=== PATIENT | male | born 1960 | race Caucasian/White ===

== ENCOUNTER 2021-05-23 10:16 | Inpatient (IN) | payer OTHER ==
--- OUTSIDE RECORDS SUMMARY | 2021-05-23 10:18 | XMS REPORT | Continuity of Care Document ---
:[address] [facility] t Address [address] [place] [address] Care Team Providers Name Role Phone NEGRA GRADY Attending Clinician Unavailable MARTY PATEL Attending Clinician Unavailable MEHRAN Attending Clinician Unavailable NEGRA GRADY Admitting Clinician Unavailable Problems This patient has no known problems. Allergies, Adverse Reactions, Alerts This patient has no known allergies or adverse reactions. Medications This patient has no known medications. Procedures This patient has no known procedures. Encounters Start End Encounter Admission Attending Care Care Encounter Source Date/Time Date/Time Type Type Clinicians Facility Department ID 2021-03-15 2021-03-19 Inpatient E [facility]EL [facility] [id number] 03:55:00 16:38:00 [facility] 2020-07-27 2020-07-27 Outpatient [facility] [id number] [facility] 10:02:00 23:59:00 DARRICK 2019-05-20 2019-05-20 Emergency [facility] [id number] [place] 00:00:00 00:00:00 TEODORA [facility] 2019-05-03 2019-05-03 Emergency E [facility] [id number] 15:08:00 15:08:00 [facility]id [facility] Results This patient has no known results.
[2021-05-23 10:43] LABS: Absolute Lymphocytes (CBC) 0.7 K/uL (0.7-4.9); MPV 6.5 fL (7.6-11.3); RBC Red Blood Cell Count 4.69 M/uL (4.33-5.43)
[2021-05-23 10:53] LABS: Protime INR 0.87
--- NOTE | 2021-05-23 11:27 | RAD REPORT ---
EXAM DESCRIPTION: RAD - Chest Single View - 05/23/2021 11:08 am CLINICAL HISTORY: CONGESTION Chest pain. COMPARISON: No comparisons FINDINGS: Portable technique limits examination quality. Moderate bilateral pulmonary opacities are present, greatest in the left lung base, most compatible w ith pneumonia. The heart is normal in size. No displaced fractures. IMPRESSION: Predominately left lower lobe pneumonia pattern.
--- NOTE | 2021-05-23 12:38 | RAD REPORT ---
EXAM DESCRIPTION: CT - Head Brain Wo Cont - 05/23/2021 12:19 pm CLINICAL HISTORY: lethargic Headache, drowsiness COMPARISON: No comparisons TECHNIQUE: All CT scans are performed using dose optimization technique as appropriate and may inclu de automated exposure control or mA/KV adjustment according to patient size. FINDINGS: No acute hemorrhage, hydrocephalus or extra-axial fluid collections seen.The ventricular s ystem is very diminutive.Right frontal ventriculostomy shunt is present. No midline shift. Mild mucosal thickening of the right maxillary antrum. The paranasal sinuses and mastoids are otherwi se clear. The calvarium is intact. 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 Clinical correlation is recommended.
--- NOTE | 2021-05-23 12:41 | RAD REPORT ---
EXAM DESCRIPTION: CT - Chest For Pe Angio - 05/23/2021 12:19 pm CLINICAL HISTORY: COUGH COMPARISON: No comparisons FINDINGS: Chest Wall: No suspicious thyroid nodules or pathologic lymphadenopathy. Lungs: Patchy multifocal airspace disease, predominantly left-sided. Pleura: No significant effusions or pneumothorax. Mediastinum/ruchi: No pathologic lymphadenopathy. There is fluid in the esophagus. Pulmonary arteries/Aorta: No filling defect identified. No aortic aneurysm. Heart: No significant pericardial effusion. Normal heart size. Upper abdomen: No acute abnormality. Multilevel degenerative changes are present in the spine. Spinal stimulator. Bones: No acute abnormality. Subacute versus remote rib fractures. All CT scans are performed using dose optimization technique as appropriate and may include automated exposure control or mA/KV adjustment according to patient size. IMPRESSION: Negative for pulmonary embolism. Bilateral ground-glass opacities concerning for infecti on or inflammation. Covid-19 is within the differential. Fluid within the esophagus also noted which could be as result of aspiration which is within the differential.
[2021-05-23 13:01] LABS: BUN Blood Urea Nitrogen 12 mg/dL (7-18); Bicarbonate 32 mmol/L (21-32); Glucose Level 123 mg/dL (74-106); Potassium 4.3 mmol/L (3.5-5.1); Sodium Level 137 mmol/L (136-145)
[2021-05-23] MEDS ORDERED: ONDANSETRON 4 MG/2 ML VIAL IV PRN (13:48)
[2021-05-23] MEDS ORDERED: ACETAMINOPHEN 500 MG TAB PO PRN (13:48)
[2021-05-23] MEDS: IPRATROPIUM BROM 0.5MG/2.5ML NEB SCH ×2 (14:30→19:25)
[2021-05-23] MEDS: ALBUTEROL 2.5 MG/3 ML NEB SOL NEB SCH ×2 (14:30→19:25)
--- NOTE | 2021-05-23 14:45 | EDPHYS ---
Physician Documentation [facility] Name: Jed Hernandez Age: 61 yrs Sex: Male : 1960 Arrival Date: 05/23/2021 Time: 10:16 Bed 7 Private MD: ED Physician Benson Montesinos HPI: 05/23 10:31 This 61 yrs old Unknown Male presents to ER via EMS with complaints of Shortness Of ma2 Breath. 10:31 The patient has shortness of breath at rest. Onset: The symptoms/episode began/occurred ma2 gradually, 1 day(s) ago. Associated signs and symptoms: Pertinent positives: productive cough, Pertinent negatives: non-productive cough, fever, loss of consciousness, numbness in extremities. Severity of symptoms: At their worst the symptoms were moderate in the emergency department the symptoms are unchanged. The patient has not experienced similar symptoms in the past. Historical: - Allergies: 10:20 No Known Allergies; jl7 - PMHx: 10:20 chronic back pain; jl7 - Immunization history:: Client reports receiving the 2nd dose of the Covid vaccine, Moderna. - Social history:: Smoking status: Patient reports use of chewing tobacco. - Family history:: not pertinent. ROS: 10:31 Constitutional: Negative for fever, chills, and weight loss. ma2 10:31 All other systems are negative. Exam: 10:31 Constitutional: This is a well developed, well nourished patient who is awake, alert, ma2 and in no acute distress. Head/Face: Normocephalic, atraumatic. Eyes: Pupils equal round and reactive to light, extra-ocular motions intact. Lids and lashes normal. Conjunctiva and sclera are non-icteric and not injected. Cornea within normal limits. Periorbital areas with no swelling, redness, or edema. ENT: Nares patent. No nasal discharge, no septal abnormalities noted. Tympanic membranes are normal and external auditory canals are clear. Oropharynx with no redness, swelling, or masses, exudates, or evidence of obstruction, uvula midline. Mucous membranes moist. Neck: Trachea midline, no thyromegaly or masses palpated, and no cervical lymphadenopathy. Supple, full range of motion without nuchal rigidity, or vertebral point tenderness. No Meningismus. Chest/axilla: Normal chest wall appearance and motion. Nontender with no deformity. No lesions are appreciated. Cardiovascular: Regular rate and rhythm with a normal S1 and S2. No gallops, murmurs, or rubs. Normal PMI, no JVD. No pulse deficits. Respiratory: Hypoxemia, bilateral Rales, otherwise lungs have equal breath sounds bilaterally, clear to auscultation and percussion. No added sounds rhonchi or wheezes noted. No increased work of breathing, no retractions or nasal flaring. Abdomen/GI: Soft, non-tender, with normal bowel sounds. No distension or tympany. No guarding or rebound. No evidence of tenderness throughout. Back: No spinal tenderness. No costovertebral tenderness. Full range of motion. Male : Normal genitalia with no discharge or lesions. Vital Signs: 10:17 BP 111 / 63; Pulse 86; Resp 15; Temp 97.6; Pulse Ox 99% on Nebulizer Mask; Weight 67.59 jl7 kg; Height 5 ft. 9 in. (175.26 cm); Pain 0/10; 11:36 BP 96 / 62; Pulse 70; Resp 17; Pulse Ox 94% on 30% Venturi mask; jl7 12:37 BP 109 / 61; Pulse 71; Resp 12; Pulse Ox 98% on R/A; ld1 13:15 BP 102 / 70; Pulse 68; Resp 15; Pulse Ox 97% on R/A; ld1 14:00 BP 104 / 71; Pulse 67; Resp 15; Pulse Ox 96% on R/A; ld1 15:10 BP 95 / 51; Pulse 71; Resp 15; Pulse Ox 97% on R/A; ld1 16:04 BP 99 / 76; Pulse 75; Resp 18; Pulse Ox 95% on R/A; ld1 10:17 Body Mass Index 22.00 (67.59 kg, 175.26 cm) jl7 [place] Coma Score: 13:15 Eye Response: to voice(3). Verbal Response: confused(4). Motor Response: localizes ld1 pain(5). Total: 12. 15:11 Eye Response: spontaneous(4). Verbal Response: oriented(5). Motor Response: obeys ld1 commands(6). Total: 15. MDM: 14:42 Differential diagnosis:. Data reviewed: vital signs, nurses notes, EMS record. [facility] 14:43 ED course: Patient has pneumonia mild elevation white count CT head shows decompressed ma2 ventricles which is nonacute likely due to VP OF [employer] shunt which she had 10 years ago after meningitis. No meningism on exam, vital signs otherwise looks good except he is on oxygen. With hypoxemia, I discussed with Dr. Dunn hospitalist, he accepted him for admission. 14:44 Patient medically screened. [facility] 05/23 10:18 Order name: BMP [facility] 05/23 10:18 Order name: Blood Culture Adult (2) [facility] 05/23 10:18 Order name: CBC with Diff; Complete Time: 13:42 [facility] 05/23 10:18 Order name: CPK [facility] 05/23 10:18 Order name: Ckmb [facility] 05/23 10:18 Order name: D-Dimer; Complete Time: 13:42 [facility] 05/23 10:18 Order name: Hepatic Function [facility] 05/23 10:18 Order name: Lipase [facility] 05/23 10:18 Order name: Magnesium [facility] 05/23 10:18 Order name: NT PRO-BNP [facility] 05/23 10:18 Order name: PT-INR; Complete Time: 13:42 [facility] 05/23 10:18 Order name: Ptt, Activated; Complete Time: 13:42 [facility] 05/23 10:18 Order name: SARS-COV-2 RT PCR (Document "Date of Onset" if Symptomatic); Complete Time: 13:42 05/23 14:22 Order name: CREATININE WHOLE BLOOD [facility] 05/23 10:18 Order name: XRAY CXR (1 view); Complete Time: 13:42 [facility] 05/23 10:18 Order name: EKG; Complete Time: 10:19 [facility] 05/23 10:18 Order name: Cardiac monitoring; Complete Time: 10:37 [facility] 05/23 10:18 Order name: EKG - Nurse/Tech; Complete Time: 10:37 [facility] 05/23 10:18 Order name: IV Saline Lock; Complete Time: 10:37 ca05/23 10:18 Order name: Labs collected and sent; Complete Time: 10:37 [facility] 05/23 10:18 Order name: O2 Per Protocol; Complete Time: 10:37 ca05/23 10:18 Order name: O2 Sat Monitoring; Complete Time: 10:37 ca 05/23 11:31 Order name: CT Chest For PE Angio; Complete Time: 13:42 ma2 05/23 12:05 Order name: CT Head Brain wo Cont; Complete Time: 13:42 jl7 05/23 13:52 Order name: NPO; Complete Time: 14:50 EDMS Administered Medications: 14:59 Drug: Rocephin (cefTRIAXone) 1 grams Route: IV; Rate: calculated rate; Site: left ww antecubital; 15:24 Drug: AZITHromycin 500 mg Route: IVPB; Infused Over: 1 hrs; Site: left antecubital; ww Disposition Summary: 05/23/21 14:44 Hospitalization Ordered Hospitalization Status: Inpatient Admission ma2 Provider: Benson Dunn Condition: Stable ma2 Problem: new ma2 Symptoms: are unchanged ma2 Bed/Room Type: Standard ma2 Location: Telemetry/MedSurg (Inpatient)(05/23/21 14:49) bd Room Assignment: [facility](05/23/21 14:49) bd Diagnosis - Other pneumonia, unspecified organism ma2 - Elevated white blood cell count ma2 Forms: - Medication Reconciliation Form ma2 - SBAR form ma2 Signatures: Dispatcher [employer] EDMS Aide Mckeon Jahala, RN RN jl7 Benson Montesinos MD MD ma2 Tamra Dwyer RN RN ww Corrections: (The following items were deleted from the chart) 14:49 14:44 Telemetry/MedSurg (Inpatient) ma2 bd 14:49 14:44 ma2 bd
--- NOTE | 2021-05-23 14:45 | ER ---
Nurse's Notes [facility] Name: Jed Hernandez Age: 61 yrs Sex: Male : 1960 Arrival Date: 05/23/2021 Time: 10:16 Bed 7 Private MD: Diagnosis: Other pneumonia, unspecified organism;Elevated white blood cell count Presentation: 05/23 10:17 Chief complaint: EMS states: Toned out for shortness of breath, pt was 85% on room air, jl7 gave A\T\A treatment and 125 mg Solu-Medrol, pt 98% on arrival to ED. Recent Covid exposure, cough started today. Coronavirus screen: Vaccine status: Patient reports receiving the 2nd dose of the covid vaccine. Moderna cough unrelated to allergies, shortness of breath, Client presents with at least one sign or symptom that may indicate coronavirus-19. Standard/surgical mask placed on the client. Provider contacted for isolation considerations. Ebola Screen: No symptoms or risks identified at this time. Initial Sepsis Screen: Does the patient meet any 2 criteria? No. Patient's initial sepsis screen is negative. Does the patient have a suspected source of infection? No. Patient's initial sepsis screen is negative. Risk Assessment: Do you want to hurt yourself or someone else? Patient reports no desire to harm self or others. Onset of symptoms was May 23, 2021. 10:17 Method Of Arrival: EMS: [facility] jl7 10:17 Acuity: GLORIA 2 jl7 Triage Assessment: 10:20 General: Appears in no apparent distress. uncomfortable, Behavior is calm, cooperative, jl7 appropriate for age, drowsy. Pain: Denies pain. Neuro: Level of Consciousness is obeys commands, lethargic, Oriented to person, place, time, situation. Cardiovascular: Respiratory: Reports shortness of breath cough that is Airway is patent Respiratory effort is even, unlabored, Respiratory pattern is regular, symmetrical, Breath sounds are diminished Breath sounds with rhonchi Onset: The symptoms/episode began/occurred this morning, the patient has moderate shortness of breath. Derm: Skin is pink, warm \T\ dry. Historical: - Allergies: 10:20 No Known Allergies; jl7 - PMHx: 10:20 chronic back pain; jl7 - Immunization history:: Client reports receiving the 2nd dose of the Covid vaccine, Moderna. - Social history:: Smoking status: Patient reports use of chewing tobacco. - Family history:: not pertinent. Screenin:37 Abuse screen: Denies threats or abuse. Denies injuries from another. Nutritional jl7 screening: No deficits noted. Tuberculosis screening: No symptoms or risk factors identified. Fall Risk Fall in past 12 months (25 points). Secondary diagnosis (15 points) impaired mobility, IV access (20 points). Ambulatory Aid- None/Bed Rest/Nurse Assist (0 pts). Gait- Weak (10 pts.). Mental Status- Overestimates/Forgets Limitations (15 pts.). Total Giordano Fall Scale indicates High Risk Score (45 or more points). Fall prevention measures have been instituted. Side Rails Up X 2 Placed Close to Nursing Station Frequent Obs/Assessments Occuring Family Present and informed to notify staff if the need to leave the bedside As available patient and family educated on Fall Prevention Program and Strategies. Assessment: 10:37 General: See triage. jl7 11:53 Reassessment: Patient appears in no apparent distress at this time. No changes from jl7 previously documented assessment. Patient and/or family updated on plan of care and expected duration. Pain level reassessed. 12:23 Reassessment: Patient appears in no apparent distress at this time. No changes from previously documented assessment. Patient and/or family updated on plan of care and expected duration. Pain level reassessed. Patient is alert, oriented x 3, equal unlabored respirations, skin warm/dry/pink. Neuro: Level of Consciousness is confused, lethargic. Cardiovascular: Rhythm is regular. 13:35 Reassessment: Patient appears in no apparent distress at this time. No changes from previously documented assessment. Patient and/or family updated on plan of care and expected duration. Pain level reassessed. spouse at bedside and updated with plan of care. 14:30 Neuro: Level of Consciousness is awake, alert, obeys commands, Oriented to person, ww place, time, Speech is normal. 15:55 Reassessment: Patient appears in no apparent distress at this time. Neuro: Level of ww Consciousness is awake, alert, obeys commands. 16:04 Reassessment: Patient appears in no apparent distress at this time. Patient is alert, ld1 oriented x 3, equal unlabored respirations, skin warm/dry/pink. Vital Signs: 10:17 BP 111 / 63; Pulse 86; Resp 15; Temp 97.6; Pulse Ox 99% on Nebulizer Mask; Weight 67.59 jl7 kg; Height 5 ft. 9 in. (175.26 cm); Pain 0/10; 11:36 BP 96 / 62; Pulse 70; Resp 17; Pulse Ox 94% on 30% Venturi mask; jl7 12:37 BP 109 / 61; Pulse 71; Resp 12; Pulse Ox 98% on R/A; ld1 13:15 BP 102 / 70; Pulse 68; Resp 15; Pulse Ox 97% on R/A; ld1 14:00 BP 104 / 71; Pulse 67; Resp 15; Pulse Ox 96% on R/A; ld1 15:10 BP 95 / 51; Pulse 71; Resp 15; Pulse Ox 97% on R/A; ld1 16:04 BP 99 / 76; Pulse 75; Resp 18; Pulse Ox 95% on R/A; ld1 10:17 Body Mass Index 22.00 (67.59 kg, 175.26 cm) jl7 [place] Coma Score: 13:15 Eye Response: to voice(3). Verbal Response: confused(4). Motor Response: localizes ld1 pain(5). Total: 12. 15:11 Eye Response: spontaneous(4). Verbal Response: oriented(5). Motor Response: obeys ld1 commands(6). Total: 15. ED Course: 10:16 Patient arrived in ED. am2 10:17 Benson Montesinos MD is Attending Physician. ma2 10:17 Tg Miller RN is Primary Nurse. jl7 10:20 Triage completed. jl7 10:20 Arm band placed on right wrist. jl7 10:37 Patient has correct armband on for positive identification. Placed in gown. Bed in low jl7 position. Call light in reach. Side rails up X2. parcel post carrier on. Pulse ox on. NIBP on. Warm blanket given. 10:37 Initial lab(s) drawn, by ED staff, sent to lab. EKG done, by ED staff, reviewed by samantha Montesinos MD. Maintain EMS IV. Dressing intact. Good blood return noted. Site clean \T\ dry. Gauge \T\ site: 20 Right AC. 10:37 COVID swab sent to lab. jl7 11:08 XRAY CXR (1 view) In Process Unspecified. EDMS 12:19 CT Chest For PE Angio In Process Unspecified. EDMS 12:19 CT Head Brain wo Cont In Process Unspecified. EDMS 14:44 Benson Dunn MD is Hospitalizing Provider. ma2 15:12 No provider procedures requiring assistance completed. Patient admitted, IV remains in ww place. Administered Medications: 14:59 Drug: Rocephin (cefTRIAXone) 1 grams Route: IV; Rate: calculated rate; Site: left ww antecubital; 15:24 Drug: AZITHromycin 500 mg Route: IVPB; Infused Over: 1 hrs; Site: left antecubital; Outcome: 14:44 Decision to Hospitalize by Provider. ma2 15:12 Condition: stable ww 15:12 Discharge instructions given to patient, significant other, Instructed on the need for admit. 15:55 Admitted to Med/surg accompanied by tech, family with patient, room 211, Report called ww to Giovanni 16:29 Patient left the ED. ww Signatures: Dispatcher [employer] EDMS Tg Miller RN RN jl7 Lucero Vega Mohammad, MD MD ma2 Ivett Urbano RN RN ld1 Tamra Dwyer RN RN ww
[2021-05-23] MEDS ORDERED: CEFTRIAXONE 1000 MG/VIAL ONE ×2 (14:53→21:12)
[2021-05-23] MEDS ORDERED: AZITHROMYCIN 500 MG INJ IVPB ONE (14:53)
[2021-05-23] MEDS ORDERED: NA CHLORIDE 0.9% 100 ML ONE (14:53)
[2021-05-23] MEDS ORDERED: NA CHLORIDE 0.9% 250 ML ONE (14:53)
[2021-05-23] MEDS: NA CHLORIDE 0.9% 1,000 ML IV SCH (16:34)
[2021-05-23 16:47] VITALS: BMI 21.9
[2021-05-23 17:11] LABS: ALT/SGPT 54 U/L (12-78); AST/SGOT 39 U/L (15-37); Albumin 3.9 g/dL (3.4-5.0); Alkaline Phosphatase 120 U/L (45-117); Bilirubin Total 0.3 mg/dL (0.2-1.0); Creatine Phosphokinase 244 U/L (39-308); Lipase 52 U/L (73-393); Magnesium 2.3 mg/dL (1.8-2.4); Protein, Total 7.4 g/dL (6.4-8.2)
[2021-05-23 17:29] LABS: Bilirubin Direct 0.1 mg/dL (0-0.2); CKMB Creatine Kinase MB 7.9 ng/mL (1.0-3.6); NT PRO-BNP 84 pg/mL (<125)
[2021-05-23] MEDS ORDERED: NA CHLORIDE 0.9% 50 ML ONE (21:14)
[2021-05-23] MEDS: CEFTRIAXONE 1,000 MG in NA CHLORIDE 0.9% 50 ML IVPB SCH (21:22)
[2021-05-24] MEDS: ALBUTEROL 2.5 MG/3 ML NEB SOL NEB SCH ×4 (01:40→19:45)
[2021-05-24] MEDS: IPRATROPIUM BROM 0.5MG/2.5ML NEB SCH ×4 (01:40→19:45)
[2021-05-24] MEDS: NA CHLORIDE 0.9% 1,000 ML IV SCH ×2 (03:20→17:12)
[2021-05-24 05:39] LABS: Absolute Lymphocytes (CBC) 0.9 K/uL (0.7-4.9); Hematocrit 35.5 % (39.6-49.0); Lymphocytes % 7.1 % (15.3-44.8); RBC Red Blood Cell Count 3.92 M/uL (4.33-5.43)
[2021-05-24 07:32] LABS: ALT/SGPT 46 U/L (12-78); AST/SGOT 33 U/L (15-37); Albumin 3.1 g/dL (3.4-5.0); Alkaline Phosphatase 96 U/L (45-117); BUN Blood Urea Nitrogen 12 mg/dL (7-18); Bicarbonate 28 mmol/L (21-32); Bilirubin Total 0.2 mg/dL (0.2-1.0); Glucose Level 112 mg/dL (74-106); HDL Cholesterol 87 mg/dL (40-60); LDL Cholesterol, Calculated 31 (<130); Magnesium 2.5 mg/dL (1.8-2.4); NT PRO-BNP 472 pg/mL (<125); Phosphorus 2.4 mg/dL (2.5-4.9); Potassium 4.6 mmol/L (3.5-5.1); Protein, Total 6.4 g/dL (6.4-8.2); Sodium Level 139 mmol/L (136-145)
[2021-05-24] MEDS ORDERED: NA CHLORIDE 0.9% 250 ML ONE (08:03)
[2021-05-24] MEDS ORDERED: AZITHROMYCIN 500 MG INJ IVPB ONE (08:04)
[2021-05-24] MEDS ORDERED: NA CHLORIDE 0.9% 50 ML ONE (08:06)
--- NOTE | 2021-05-24 08:30 | P.HP ---
Certification for Inpatient Patient admitted to: Inpatient With expected LOS: >2 Midnights Patient will require the following post-hospital care: None Practitioner: I am a practitioner with admitting privileges, knowledge of patient current condition, hospital course, and medical plan of care. Services: Services provided to patient in accordance with Admission requirements found in Title 42 Section 412.3 of the Code of Federal Regulations Patient History Date of Service: 05/23/21 Reason for admission: Shortness of breath; bilateral pneumonia History of Present Illness: Patient is a 61-year-old gentleman who presents to the hospital with altered mentation. Patient states he went to his pain doctor yesterday and his pain medication was changed. He had recently ran out of his Suboxone. He had gone to the pain doctor and it was restarted. He took it last night. He had this morning his had a hard time getting him awake and alert and he was very tachypneic. She called EMS and he was brought into the emergency room. In the emergency room his work-up revealed bilateral pneumonia. Patient appears to have multifocal pneumonia. His COVID test was negative. He will be admitted to the hospital for bacterial pneumonia. We will continue with IV antibiotic therapy. We will check procalcitonin level. Patient will be admitted for fur ther treatment. Allergies No Known Allergies Allergy (Unverified 05/23/21 14:41) - Past Medical/Surgical History Diabetic: No -: MRSA -: Bacterial Meningitis 2x -: Subdural Hematoma 2x -: Chronic back pain -: 2 hernia repairs -: HTN -: HLD -: Gastritis -: Brain surgery x4 -: Neurostimulator in back -: Titanium infusion C4/5 -: Shoulder sx -: Torn rotator cuff-fixed 2011 - Family History Father Family History: Reviewed- Non-Contributory - Social History Smoking Status: Former smoker Alcohol use: No CD- Drugs: No Caffeine use: Yes Place of Residence: Home Review of Systems 10-point ROS is otherwise unremarkable Physical Examination - Vital Signs Temperature: 98.4 F Blood Pressure: 138/69 Pulse: 95 Respirations: 18 Pulse Ox (%): 93 - Physical Exam General: Alert, In no apparent distress, Oriented x3 (Daughter) Respiratory: Diminished Cardiovascular: Regular rate/rhythm, Normal S1 S2 Gastrointestinal: Normal bowel sounds, Soft and benign, Non-distended, No tenderness Musculoskeletal: No clubbing, No swelling, No tenderness Neurological: Normal speech, Cranial nerves 3-12 intact, Abnormal strength Assessment & Plan - Problems (Diagnosis) (1) AMS (altered mental status) Current Visit: Yes Status: Acute (2) Hypoxemia Current Visit: Yes Status: Acute (3) Pneumonia Current Visit: Yes Status: Acute (4) Leukocytosis Current Visit: Yes Status: Acute - Plan Plan: 1. Continue with antibiotic therapy 2. Repeat chest x-ray in the morning 3. Outpatient pulmonary consultation 4. Sputum culture 5. Check procalcitonin level 6. Adjust home medication as 7. Monitor diet and swallowing for dysphagia 8. Adjust pain medications 9. GI and DVT prophylaxis Discharge Plan: Home Plan to discharge in: Greater than 2 days - Advance Directives Does patient have a Living Will: No Does patient have a Durable POA for Healthcare: No - Code Status/Comfort Care Code Status Assessed: Yes Code Status: Full Code Critical Care: No Time Spent Managing PTS Care (In Minutes): 45
--- NOTE | 2021-05-24 08:44 | P.PN ---
Subjective Date of Service: 05/24/21 Patient continues to improve. Respiratory status is better. We will take off of oxygen and check his room air oxygen today. Cultures are pending. Review of Systems 10-point ROS is otherwise unremarkable Physical Examination - Vital Signs Temperature: 98.4 F Blood Pressure: 138/69 Pulse: 95 Respirations: 18 Pulse Ox (%): 93 - Physical Exam General: Alert, In no apparent distress HEENT: Atraumatic, PERRLA, EOMI Neck: Supple, JVD not distended Respiratory: Clear to auscultation bilaterally, Normal air movement Cardiovascular: Regular rate/rhythm, Normal S1 S2 Gastrointestinal: Normal bowel sounds, No tenderness Musculoskeletal: No tenderness Integumentary: No rashes Neurological: Normal speech, Normal tone, Normal affect Lymphatics: No axilla or inguinal lymphadenopathy - Studies Medications List Reviewed: Yes Assessment & Plan - Problems (Diagnosis) (1) AMS (altered mental status) Current Visit: Yes Status: Acute (2) Hypoxemia Current Visit: Yes Status: Acute (3) Pneumonia Current Visit: Yes Status: Acute (4) Leukocytosis Current Visit: Yes Status: Acute - Plan Plan: 1. Continue with antibiotic therapy 2. Repeat chest x-ray in the morning 3. Outpatient pulmonary consultation 4. Sputum culture 5. Check procalcitonin level 6. Adjust home medication as 7. Monitor diet and swallowing for dysphagia 8. Adjust pain medications 9. GI and DVT prophylaxis - Advance Directives Does patient have a Living Will: No Does patient have a Durable POA for Healthcare: No - Code Status/Comfort Care Code Status: Full Code
[2021-05-24] MEDS: CEFTRIAXONE 1000 MG/VIAL ONE ×2 (08:59→09:01)
[2021-05-24] MEDS: AZITHROMYCIN IV 500 MG in NA CHLORIDE 0.9% 250 ML IVPB SCH (09:00)
[2021-05-24] MEDS: ENOXAPARIN 40 MG/0.4 ML SQ SCH (09:01)
[2021-05-24] MEDS: CEFTRIAXONE 1,000 MG in NA CHLORIDE 0.9% 50 ML IVPB SCH ×2 (09:19→21:36)
[2021-05-24] MEDS ORDERED: ZOLPIDEM TARTRATE 5 MG TABLET PO PRN (21:07)
[2021-05-24] MEDS: POTASS/SODIUM PHOSPHATE 1 PKT POWD.PACK PO SCH ×3 (21:42→23:34)
[2021-05-25] MEDS: ALBUTEROL 2.5 MG/3 ML NEB SOL NEB SCH ×4 (02:05→19:58)
[2021-05-25] MEDS: IPRATROPIUM BROM 0.5MG/2.5ML NEB SCH ×4 (02:05→19:58)
[2021-05-25] MEDS: NA CHLORIDE 0.9% 1,000 ML IV SCH ×2 (06:13→23:22)
[2021-05-25 07:26] LABS: BUN Blood Urea Nitrogen 10 mg/dL (7-18); Bicarbonate 32 mmol/L (21-32); Glucose Level 96 mg/dL (74-106); Phosphorus 3.6 mg/dL (2.5-4.9); Potassium 4.2 mmol/L (3.5-5.1); Sodium Level 139 mmol/L (136-145)
[2021-05-25] MEDS: AZITHROMYCIN IV 500 MG in NA CHLORIDE 0.9% 250 ML IVPB SCH (08:11)
[2021-05-25] MEDS: ENOXAPARIN 40 MG/0.4 ML SQ SCH (08:12)
[2021-05-25] MEDS: CEFTRIAXONE 1,000 MG in NA CHLORIDE 0.9% 50 ML IVPB SCH ×2 (08:12→20:30)
[2021-05-25] MEDS: CYCLOBENZAPRINE 10 MG TAB PO SCH ×2 (12:27→20:30)
[2021-05-25] MEDS: AMITRIPTYLINE 50 MG TAB PO SCH (20:30)
[2021-05-25] MEDS: SULFASALAZINE 500 MG E.C. TAB PO SCH (20:30)
[2021-05-25] MEDS: ATORVASTATIN 40 MG TAB PO SCH (20:30)
[2021-05-25] MEDS: TRAZODONE 50 MG TABLET PO SCH (20:30)
[2021-05-26] MEDS: ALBUTEROL 2.5 MG/3 ML NEB SOL NEB SCH ×4 (01:18→20:15)
[2021-05-26] MEDS: IPRATROPIUM BROM 0.5MG/2.5ML NEB SCH ×4 (01:18→20:15)
[2021-05-26 07:00] LABS: Hematocrit 36.9 % (39.6-49.0); MPV 6.4 fL (7.6-11.3); RBC Red Blood Cell Count 4.07 M/uL (4.33-5.43)
[2021-05-26 07:17] LABS: ALT/SGPT 77 U/L (12-78); AST/SGOT 42 U/L (15-37); Albumin 2.8 g/dL (3.4-5.0); Alkaline Phosphatase 113 U/L (45-117); BUN Blood Urea Nitrogen 11 mg/dL (7-18); Bicarbonate 31 mmol/L (21-32); Bilirubin Total 0.3 mg/dL (0.2-1.0); Glucose Level 101 mg/dL (74-106); Magnesium 1.9 mg/dL (1.8-2.4); Potassium 4.6 mmol/L (3.5-5.1); Protein, Total 6.4 g/dL (6.4-8.2); Sodium Level 139 mmol/L (136-145)
[2021-05-26] MEDS: NA CHLORIDE 0.9% 1,000 ML IV SCH ×3 (08:40→22:00)
[2021-05-26] MEDS: BUPRENORPHINE HCL 2 MG SL SCH (09:00)
[2021-05-26] MEDS: CEFTRIAXONE 1,000 MG in NA CHLORIDE 0.9% 50 ML IVPB SCH ×2 (09:21→20:43)
[2021-05-26] MEDS: AZITHROMYCIN IV 500 MG in NA CHLORIDE 0.9% 250 ML IVPB SCH (09:21)
[2021-05-26] MEDS: SULFASALAZINE 500 MG E.C. TAB PO SCH ×2 (09:22→20:43)
[2021-05-26] MEDS: ENOXAPARIN 40 MG/0.4 ML SQ SCH (09:22)
[2021-05-26] MEDS: CYCLOBENZAPRINE 10 MG TAB PO SCH ×3 (09:22→20:43)
[2021-05-26] MEDS: CITALOPRAM 10 MG TABLET PO SCH (09:23)
[2021-05-26] MEDS: AMLODIPINE 10 MG TAB PO SCH (09:23)
[2021-05-26] MEDS: FOLIC ACID 1 MG TABLET PO SCH (09:24)
--- NOTE | 2021-05-26 11:37 | RAD REPORT ---
EXAM DESCRIPTION: RAD - Chest Single View - 05/26/2021 8:41 am CLINICAL HISTORY: pneumonia Chest pain. COMPARISON: Chest Single View dated 05/23/2021 FINDINGS: Portable technique limits examination quality. Bilateral pulmonary opacities are again seen, with moderate improvement in the left basilar lung infi ltrate since comparative study dated 05/23/2021. The heart is normal in size.
[2021-05-26 18:44] VITALS: O2SAT 92
[2021-05-26] MEDS ORDERED: CEFTRIAXONE 1000 MG/VIAL ONE (20:37)
[2021-05-26] MEDS ORDERED: NA CHLORIDE 0.9% 50 ML ONE (20:41)
[2021-05-26] MEDS: AMITRIPTYLINE 50 MG TAB PO SCH (20:42)
[2021-05-26] MEDS: ATORVASTATIN 40 MG TAB PO SCH (20:42)
[2021-05-26] MEDS: TRAZODONE 50 MG TABLET PO SCH (20:43)
--- NOTE | 2021-05-27 00:36 | P.PN ---
Date of Service: 05/25/21 Subjective Patient is still slightly hypoxic. Patient is coughing and congested. We are weaning off the oxygen and continue antibiotics Review of Systems 10-point ROS is otherwise unremarkable Physical Examination - Vital Signs Reviewed - Physical Exam General: Alert, In no apparent distress Respiratory: Basilar rhonchi Cardiovascular: Regular rate/rhythm, Normal S1 S2 Gastrointestinal: Normal bowel sounds, No tenderness Neurological: Normal speech, Normal tone, Normal affect Assessment & Plan - Problems (Diagnosis) (1) AMS (altered mental status) Current Visit: Yes Status: Acute (2) Hypoxemia Current Visit: Yes Status: Acute (3) Pneumonia Current Visit: Yes Status: Acute (4) Leukocytosis Current Visit: Yes Status: Acute - Plan Plan: 1. Continue with antibiotic therapy 2. Plan to repeat the chest x-ray 3. Outpatient pulmonary consultation 4. Sputum culture is negative 5. Repeat procalcitonin level 6. Will need to adjust all medications as patient was found unresponsive by his . Concern for aspiration. 7. Monitor diet and swallowing for dysphagia 8. GI and DVT prophylaxis
--- NOTE | 2021-05-27 00:40 | P.PN ---
Date of Service: 05/26/21 Subjective Patient was very lethargic today. Will need to adjust home medications. Patient is also had chest x-ray with improvement. Room air O2 sats today as well. Anticipate discharge home over the next 24-48 hr. Review of Systems 10-point ROS is otherwise unremarkable Physical Examination - Vital Signs Reviewed - Physical Exam General: Alert, In no apparent distress Respiratory: Clear bilaterally Cardiovascular: Regular rate/rhythm, Normal S1 S2 Gastrointestinal: Normal bowel sounds, No tenderness Neurological: No focal deficits Assessment & Plan - Problems (Diagnosis) (1) AMS (altered mental status) Current Visit: Yes Status: Acute (2) Hypoxemia Current Visit: Yes Status: Acute (3) Pneumonia Current Visit: Yes Status: Acute (4) Leukocytosis Current Visit: Yes Status: Acute (5) History of chronic pain Current Visit: Yes Status: Chronic (6) Hypertension Current Visit: Yes Status: Chronic - Plan Continue with plan of care as mentioned below: 1. Continue with antibiotic therapy; for aspiration pneumonia 2. Plan to repeat the chest x-ray 3. Outpatient pulmonary consultation 4. Sputum culture is negative 5. Room air O2 sats 6. Continue with pain medications; adjust medications for insomnia 7. Tolerating diet; strict blood pressure control 8. GI and DVT prophylaxis
[2021-05-27] MEDS: PIPER TAZO 3.375 GM in NA CHLORIDE 0.9% 100 ML IV SCH ×2 (01:09→10:27)
[2021-05-27] MEDS: IPRATROPIUM BROM 0.5MG/2.5ML NEB SCH ×3 (02:15→14:06)
[2021-05-27] MEDS: ALBUTEROL 2.5 MG/3 ML NEB SOL NEB SCH ×3 (02:15→14:06)
[2021-05-27] MEDS: BUPRENORPHINE HCL 2 MG SL SCH (09:00)
[2021-05-27] MEDS: SULFASALAZINE 500 MG E.C. TAB PO SCH (10:28)
[2021-05-27] MEDS: ENOXAPARIN 40 MG/0.4 ML SQ SCH (10:28)
[2021-05-27] MEDS: CYCLOBENZAPRINE 10 MG TAB PO SCH ×2 (10:28→14:00)
[2021-05-27] MEDS: CITALOPRAM 10 MG TABLET PO SCH (10:29)
[2021-05-27] MEDS: AMLODIPINE 10 MG TAB PO SCH (10:29)
[2021-05-27] MEDS: FOLIC ACID 1 MG TABLET PO SCH (10:29)
--- NOTE | 2021-05-27 12:06 | P.DS ---
Admission Date: 05/23/21 Discharge Date: 05/27/21 Primary Care Provider: Migue PCP Disposition: ROUTINE DISCHARGE Discharge Condition: GOOD Reason for Admission: Shortness of breath; bilateral pneumonia Consultations: none Procedures: COVID: Negative CT Chest: COMPARISON: No comparisons FINDINGS: Chest Wall: No suspicious thyroid nodules or pathologic lymphadenopathy. Lungs: Patchy multifocal airspace disease, predominantly left-sided. Pleura: No significant effusions or pneumothorax. Mediastinum/ruchi: No pathologic lymphadenopathy. There is fluid in the esophagus. Pulmonary arteries/Aorta: No filling defect identified. No aortic aneurysm. Heart: No significant pericardial effusion. Normal heart size. Upper abdomen: No acute abnormality. Multilevel degenerative changes are present in the spine. Spinal stimulator. Bones: No acute abnormality. Subacute versus remote rib fractures. All CT scans are performed using dose optimization technique as appropriate and may include automated exposure control or mA/KV adjustment according to patient size. IMPRESSION: Negative for pulmonary embolism. Bilateral ground-glass opacities concerning for infection or inflammation. Covid-19 is within the differential. Fluid within the esophagus also noted which could be as result of aspiration which is within the differential. CT head: COMPARISON: No comparisons TECHNIQUE: All CT scans are performed using dose optimization technique as appropriate and may include automated exposure control or mA/KV adjustment according to patient size. FINDINGS: No acute hemorrhage, hydrocephalus or extra-axial fluid collections seen.The ventricular system is very diminutive.Right frontal ventriculostomy shunt is present. No midline shift. Mild mucosal thickening of the right maxillary antrum. The paranasal sinuses and mastoids are otherwise clear. The calvarium is intact. IMPRESSION: The ventricular system is very decompressed and diminutive, which can be seen in slit-ventricle syndrome. Clinical correlation is recommended. Follow up CXR: COMPARISON: Chest Single View dated 05/23/2021 FINDINGS: Portable technique limits examination quality. Bilateral pulmonary opacities are again seen, with moderate improvement in the left basilar lung infiltrate since comparative study dated 05/23/2021. The heart is normal in size. Medical Problem List: Acute encephalopathy secondary to bilateral pneumonia with hypoxia, likely aspiration Chronic pain Hypertension Depression Hyperlipidemia Brief History of Present Illness: 61-year-old male with history of hypertension, chronic pain presented to the emergency room with altered mental status. Patient had recent change in his pain medication. Patient found to have multifocal pneumonia. Patient was admitted for treatment. Hospital Course: Patient presented with acute encephalopathy secondary to bilateral pneumonia with hypoxia. Patient required hospitalization. Patient improved with IV antibiotic therapy and treatment. At discharge x-ray shows improvement. Patient no longer on oxygen. Patient likely had aspiration pneumonia. Patient had pain medication adjusted prior to admission. At discharge the patient will continue with Augmentin 875 mg 1 pill twice daily for 5 more days. Patient will also continue with Tessalon Perles 100 mg 3 times a day as needed for cough. Recommend to recheck chest x-ray in 2 to 4 weeks to monitor resolution. Recommend follow-up with PCP to further monitor and follow-up this hospitalization. Patient will be given a list of PCPs in the area to establish care. Patient with chronic pain. Prior to admission medications were adjusted by his pain management physician. Suboxone 2 mg sublingual daily At discharge patient will continue with his current medications including, Flexeril 10 mg 3 times a day as needed for muscle spasm and folic acid. Recommend follow-up with chronic pain management to further address and monitor his condition. Patient with depression. At discharge patient will continue with Celexa 20 mg daily and trazodone 100 mg at bedtime. Patient with hypertension. At discharge patient will continue with Norvasc 10 mg daily. Recommend to maintain blood pressure less than 130/80. Further treatment can be done by his PCP. Patient with hyperlipidemia. At discharge patient will continue with Lipitor 40 mg daily. Patient also takes sulfasalazine 500 mg 1 pill twice daily and folic acid daily. Patient may continue with these medications at discharge. Vital Signs/Physical Exam: Temp Pulse Resp BP Pulse Ox 97.7 F 80 18 124/68 94 05/27/21 08:00 05/27/21 08:00 05/27/21 08:00 05/27/21 10:29 05/27/21 08:00 General: Alert, In no apparent distress, Oriented x3, Cooperative HEENT: Atraumatic Neck: Supple Respiratory: Clear to auscultation bilaterally, Normal air movement Cardiovascular: Normal pulses, Regular rate/rhythm Gastrointestinal: Normal bowel sounds, No tenderness, No masses, No rebound, No guarding Musculoskeletal: No erythema, No tenderness, No warmth Integumentary: No tenderness/swelling, No erythema, No warmth, No cyanosis Neurological: Normal speech, Normal strength at 5/5 x4 extr, Normal tone, Normal affect Laboratory Data at Discharge: WBC 8.70 K/uL (4.3-10.9) D 05/26/21 06:38 Hgb 12.1 g/dL (13.6-17.9) L 05/26/21 06:38 Hct 36.9 % (39.6-49.0) L 05/26/21 06:38 Plt Count 237 K/uL (152-406) 05/26/21 06:38 PT 10.0 SECONDS (9.5-12.5) 05/23/21 Unknown INR 0.87 05/23/21 Unknown APTT 24.8 SECONDS (24.3-36.9) 05/23/21 Unknown Sodium 139 mmol/L (136-145) 05/26/21 06:38 Potassium 4.6 mmol/L (3.5-5.1) 05/26/21 06:38 BUN 11 mg/dL (7-18) 05/26/21 06:38 Creatinine 0.52 mg/dL (0.55-1.3) L 05/26/21 06:38 Glucose 101 mg/dL (74-106) 05/26/21 06:38 Phosphorus 3.6 mg/dL (2.5-4.9) 05/25/21 07:00 Magnesium 1.9 mg/dL (1.8-2.4) D 05/26/21 06:38 Total Bilirubin 0.3 mg/dL (0.2-1.0) 05/26/21 06:38 AST 42 U/L (15-37) H 05/26/21 06:38 ALT 77 U/L (12-78) 05/26/21 06:38 Alkaline Phosphatase 113 U/L (45-117) 05/26/21 06:38 Triglycerides 35 mg/dL (<150) 05/24/21 05:06 Cholesterol 125 mg/dL (<200) 05/24/21 05:06 HDL Cholesterol 87 mg/dL (40-60) H 05/24/21 05:06 Cholesterol/HDL Ratio 1.44 05/24/21 05:06 Lipase 52 U/L (73-393) L 05/23/21 Unknown Home Medications: Amitriptyline [Elavil*] 50 mg PO BEDTIME 05/24/21 Amlodipine [Norvasc*] 10 mg PO DAILY 05/24/21 Atorvastatin Calcium [Lipitor] 40 mg PO BEDTIME 05/24/21 Citalopram [Celexa*] 20 mg PO DAILY 05/24/21 Cyclobenzaprine [Flexeril*] 10 mg PO TID 05/24/21 Folic Acid 20 mg PO DAILY 05/24/21 Trazodone [Desyrel*] 100 mg PO BEDTIME 05/24/21 buprenorphine HCL [Buprenorphine HCl] 2 mg SL DAILY 05/24/21 sulfaSALAzine [Sulfasalazine] 500 mg PO BID 05/24/21 Amox/Clavulanate [Augmentin 875-125 Tab*] 875 mg PO BID #10 tab 05/27/21 Benzonatate [Tessalon Perle] 100 mg PO TID PRN #10 cap 05/27/21 New Medications: Amox/Clavulanate [Augmentin 875-125 Tab*] 875 mg PO BID #10 tab Benzonatate [Tessalon Perle] 100 mg PO TID PRN #10 cap PRN Reason: Cough Physician Discharge Instructions: Patient presented with acute encephalopathy secondary to bilateral pneumonia with hypoxia. Patient required hospitalization. Patient improved with IV antibiotic therapy and treatment. At discharge x-ray shows improvement. Patient no longer on oxygen. Patient likely had aspiration pneumonia. Patient had pain medication adjusted prior to admission. At discharge the patient will continue with Augmentin 875 mg 1 pill twice daily for 5 more days. Patient will also continue with Tessalon Perles 100 mg 3 times a day as needed for cough. Recommend to recheck chest x-ray in 2 to 4 weeks to monitor resolution. Recommend follow-up with PCP to further monitor and follow-up this hospitalization. Patient will be given a list of PCPs in the area to establish care. Patient with chronic pain. Prior to admission medications were adjusted by his pain management physician. Suboxone 2 mg sublingual daily At discharge patient will continue with his current medications including, Flexeril 10 mg 3 times a day as needed for muscle spasm and folic acid. Recommend follow-up with chronic pain management to further address and monitor his condition. Patient with depression. At discharge patient will continue with Celexa 20 mg daily and trazodone 100 mg at bedtime. Patient with hypertension. At discharge patient will continue with Norvasc 10 mg daily. Recommend to maintain blood pressure less than 130/80. Further treatment can be done by his PCP. Patient with hyperlipidemia. At discharge patient will continue with Lipitor 40 mg daily. Patient also takes sulfasalazine 500 mg 1 pill twice daily and folic acid daily. Patient may continue with these medications at discharge. Diet: AHA Activity: Ad gurinder Followup: NONE,NONE [Primary Care Provider] - Time spent managing pt's care (in minutes): 55
[2021-05-27 13:27] VITALS: BP 155/73; TEMP 98.4
[2021-05-27] MEDS ORDERED: AMOX/K CLAV 875 MG TAB PO SCH (21:00)
[2021-05-27] MEDS ORDERED: TRAZODONE 50 MG TABLET PO SCH (21:00)
== END 2021-05-27 16:44 | disposition home or self-care (01) | DRG 178 ==
LOC: ER 10:16 → ERHOLD 13:49 → 2ND 16:10
PROVIDERS: ADMIT Hospitalist; ATTEND Hospitalist
DX: J69.0 Pneumonitis due to inhalation of food and vomit (principal); G93.40 Encephalopathy, unspecified; R09.02 Hypoxemia; G89.29 Other chronic pain; I10 Essential (primary) hypertension; F32.A Depression, unspecified; E78.5 Hyperlipidemia, unspecified; G47.00 Insomnia, unspecified; Z87.891 Personal history of nicotine dependence; Z20.822 Contact with and (suspected) exposure to COVID-19
CPT/HCPCS: 36415; 70450; 71045; 71275; 80048; 80053; 80061; 80076; 82550; 82553; 82565; 83690; 83735; 83880; 84100; 84145; 84443; 85025; 85379; 85610; 85730; 87040; 87070; 87205; 93005; 94640; 94760; 96374; 96375; 99285; J0456; J1650; J2543; J7030; J7050; Q9967; U0003

== ENCOUNTER 2023-01-10 04:19 | Emergency (ER) | payer OTHER ==
--- OUTSIDE RECORDS SUMMARY | 2023-01-10 04:22 | XMS REPORT | Continuity of Care Document ---
:1960 Author Organization [facility] t Address [address] [facility]. [address] [place] [address] Care Team Providers Name Role Phone Andrew Boyce MD Primary Care Physician COLLINS WOOTEN Attending Clinician Unavailable Kemar Viveros MD Attending Clinician [phone] Sheryl Ayala MA Attending Clinician Unavailable DEWAYNE GRADY Attending Clinician Unavailable DARRICK PATEL Attending Clinician Unavailable TEODORA LAURENT Attending Clinician Unavailable DEWAYNE GRADY Admitting Clinician Unavailable Payers Payer Name Policy Type Policy Number Effective Date Expiration Date S ource Problems Condition Condition Condition Status Onset Resolution Last Treating Co mments Source Name Details Category Date Date Treatment Clinician Date Foreign Foreign Disease Active [facility] head head 00:00: [facility]osp[facility] 00 l Allergies, Adverse Reactions, Alerts This patient has no known allergies or adverse reactions. Social History Social Habit Start Date Stop Date Quantity Comments Source [facility] History of tobacco Current smoker [facility] History of Social 2022-10-03 2022-10-[address] function 00:00:00 00:00:00 Hospital Alcohol intake 2019-05-20 2019-05-20 Current [facility] 00:00:00 00:00:00 non-drinker of Hospital alcohol (finding) Alcohol Comment 2016-09-23 2016-09-23 2003 [facility] 00:[facility]:00 [facility]:00 Hospital Cigarettes smoked 2016-09-23 2016-09-[address] current (pack per 00:00:00 00:00:00 Hospita l day) - Reported Tobacco use and 2016-09-23 2016-09-23 [facility] of [facility] exposure 00:00:00 00:00:00 smokeless Hospital tobacco Sex Assigned At [birth year] [facility] 00[facility] Smoking Status Start Date Stop Date Source Ex-smoker 2016-09-23 00:00:00 2016-09-23 [facility]:00:[facility] Medications Ordered Filled Start Stop Current Ordering Indication Dosage Frequency Signature Comments Components Source Medication Medication Date Date Medication? Clinician (SIG) Name Name armodafinil Yes 250mg QD Take 250 M [facility] (NUVIGIL) 5-[address] 250 mg 16:39: mouth [facility]ospita tablet 47 daily. l simvastatin Yes 10mg QD Take 10 mg [facility] (ZOCOR) 10 5-[address] MG tablet 16:39: nightly. Hosp yadira 47 l propranolol Yes 120mg QD Take 120 M [facility] XL 5-[address] (INNOPRAN 16:39: mouth Hospita XL) 120 MG 47 nightly. l 24 hr capsule amLODIPine Yes 10mg QD Take 10 mg M [facility] (NORVASC) 5-[address] 10 mg 16:39: nightly. Hospita tablet 47 l cyclobenzap Yes 10mg [id number] Take 10 mg [facility] rine 5-18 [id number] mouth [address] (FLEXERIL) 16:39: 3D (three) Hosp yadira 10 mg 47 times a l tablet day as needed for muscle spasms. escitalopra Yes 20mg QD Take 20 mg [facility] m (LEXAPRO) 5-[address] 20 MG 16:39: nightly. Hospita tablet 47 l sucralfate 0 Yes 1g Q.25D Take 1 g Me thodi (CARAFATE) 5-[address] 1 gram 16:39: (four) Hospita tablet 47 times a l day. omeprazole 2017-0 Yes 40mg QD Take 40 mg M [facility] (PriLOSEC) 5-[address] 40 MG 16:39: nightly. Hospita capsule 47 l Vital Signs Vital Name Observation Time Observation Value Comments Source Systolic blood 2022-10-03 17:44:37 146 mm[Hg] [facility] pressure Diastolic blood 2022-10-03 17:44:37 86 mm[Hg] [facility] pressure Heart rate 2022-10-03 17:44:37 83 /min [facility] Body temperature 2022-10-03 17:41:57 35.72 Ester [facility] Respiratory rate 2022-10-03 17:41:57 18 /min [facility] Oxygen saturation in 2022-10-03 17:41:57 96 /min [facility] Arterial blood by Pulse oximetry Body height 2022-10-03 13:33:00 175.3 cm [facility] Body weight 2022-10-03 13:33:00 63.504 kg [facility] BMI 2022-10-03 13:33:00 20.67 kg/m2 [facility] Procedures Procedure Date / Time Performed Performing Clinician Apryl e CT CERVICAL SPINE WO 2022-10-03 14:01:04 Viveros [facility] CONTRAST [facility] CT HEAD WO CONTRAST 2022-10-03 13:56:35 [facility] Plan of Care Planned Activity Planned Date Details Comments Source Future Scheduled 2023-01-09 [facility] Test 07:04:26 malignant neoplasm of colon (procedure) [code = 559760023] Future Scheduled 2023-01-09 [facility] Test 07:04:26 malignant neoplasm of colon (procedure) [code = 346174586] Future Scheduled 2023-01-09 [facility] Test 07:04:26 malignant neoplasm of colon (procedure) [code = 849030001] Future Scheduled 2023-01-09 [facility] Test 07:04:26 screening (procedure) [code = 258579613] Future Scheduled 2023-01-09 [facility] Test 07:04:26 malignant neoplasm of colon (procedure) [code = 610166478] Future Scheduled 2023-01-09 [facility] Test 07:04:26 malignant neoplasm of colon (procedure) [code = 796267653] Future Scheduled 2023-01-09 SHINGLES VACCINES [facility] Test 07:04: (1 of 2) [code = SHINGLES VACCINES (1 of 2)] Future Scheduled 2023-01-09 INFLUENZA VACCINE [facility] Test 07:04: (#1) [code = INFLUENZA VACCINE (#1)] Encounters Start End Encounter Admission Attending Care Care Encounter Source Date/Time Date/Time Type Type Clinicians Facility Department ID 2022-10-31 2022-11-01 Emergency E SUGAR, [facility] [id number] 23:09:00 00:24:00 COLLINS Bradshaw l [facility] 2022-10-03 2022-10-03 Emergency Viveros, 1.2.840.1 [id number] [facility] 08:36:00 12:49:[id number] [facility] 3.430.2.7 Hospit a .3.171381 l .8 2022-10-03 2022-10-03 Emergency VIVEROS, [facility] [id number] 00:00:00 00:00:[address] KEM[address] 2022-06-25 2022-06-25 Telephone Ayala, 1.2.840.1 [id number] [facility] 00:00:00 00:00:[id number] 3.430.2.7 Hospit a .3.107022 l .8 2021-03-15 2021-03-19 Inpatient E YSABEL, [facility] CAR [id number] 03:55:00 16:38:00 DEWAYNE Bradshaw [facility] 2020-07-27 2020-07-27 Outpatient JORGE, [facility] [id number] [facility] 10:02:00 23:59:00 DARRICK 2019-05-20 2019-05-20 Emergency [facility], [facility] [id number] 00:00:00 00:00:00 TEODORA [address] 2019-05-03 2019-05-03 Emergency E [facility] [address] 15:08:00 15:08:00 [facility] Results This patient has no known results.
--- NOTE | 2023-01-10 06:23 | ER ---
Nurse's Notes [facility] Name: Jed Hernandez Age: 62 yrs Sex: Male : 1960 Arrival Date: 01/10/2023 Time: 04:19 Bed 5 Private MD: Diagnosis: Pain in right foot-foreign body retained, REMOVED Presentation: 01/10 04:52 Chief complaint: Patient states: right heel pain of 9 with walking, onset 6-9 months pf1 ago. Patient stated stepped on either a piece of glass or metal while in the garage,onset 6-9 months ago. 04:52 Coronavirus screen: Vaccine status: Patient reports receiving the 2nd dose of the covid pf1 vaccine. 4 doses of Moderna Client denies travel out of the [place] in the last 14 days. At this time, the client does not indicate any symptoms associated with coronavirus-19. Ebola Screen: Patient negative for fever greater than or equal to 101.5 degrees Fahrenheit, and additional compatible Ebola Virus Disease symptoms. Initial Sepsis Screen: Does the patient meet any 2 criteria? No. Patient's initial sepsis screen is negative. Does the patient have a suspected source of infection? No. Patient's initial sepsis screen is negative. Risk Assessment: Do you want to hurt yourself or someone else? Patient reports no desire to harm self or others. 04:52 Method Of Arrival: Ambulatory pf1 04:52 Acuity: GLORIA 4 pf1 06:47 Onset of symptoms is unknown. rv Historical: - Allergies: 05:15 No Known Allergies; pf1 - PMHx: 05:15 chronic back pain; DDD; Hypercholesterolemia; Hypertensive disorder; edema; Arthritis; pf1 - PSHx: 05:15 inguinal hernia; back surgery; brain surgery with HISTOLOGY TECHNOLOGIST shunt; left shoulder; pf1 - Immunization history:: Adult Immunizations up to date, Last tetanus immunization: < 5 years ago Flu vaccine is up to date. - Social history:: Smoking status: Patient/guardian denies using tobacco, the patient reports quitting approximately 40 years ago, Patient/guardian denies using alcohol, the patient reports quitting approximately 20 years ago. - Family history:: not pertinent. Screenin:02 [facility] ED Fall Risk Assessment (Adult) History of falling in the last 3 months, rv including since admission No falls in past 3 months (0 pts) Confusion or Disorientation No (0 pts) Intoxicated or Sedated No (0 pts) Impaired Gait No (0 pts) Mobility Assist Device Used No (0 pt) Altered Elimination No (0 pt) Score/Fall Risk Level 0 - 2 = Low Risk Oriented to surroundings, Maintained a safe environment, Educated pt \T\ family on fall prevention, incl call for assistance when getting out of bed, Assessed \T\ reinforced patient's understanding of fall precautions, Provided non-skid footwear, Hourly rounding (assess needs \T\ fall precautionary measures) done, Used ambulatory aids as needed (educated on \T\ assisted with), Used gait belt as appropriate. Abuse screen: Denies threats or abuse. Denies injuries from another. Nutritional screening: No deficits noted. Tuberculosis screening: No symptoms or risk factors identified. Assessment: 05:02 General: Appears comfortable, Behavior is calm, cooperative. Neuro: Level of rv Consciousness is awake, alert, obeys commands, Oriented to person, place, time, situation. Cardiovascular: Capillary refill < 3 seconds Patient's skin is warm and dry. Respiratory: Airway is patent Respiratory effort is even, unlabored, Respiratory pattern is. GI: No signs and/or symptoms were reported involving the gastrointestinal system. : No signs and/or symptoms were reported regarding the genitourinary system. Derm: Skin is intact. 05:02 Pain: Complains of pain in right foot. rv Vital Signs: 04:52 BP 151 / 97; Pulse 74; Resp 16; Temp 97.9; Pulse Ox 100% on R/A; Weight 58.51 kg; pf1 Height 5 ft. 9 in. ; Pain 0/10; 06:46 BP 152 / 99; Pulse 71; Resp 16; Temp 98; Pulse Ox 99% ; rv 04:52 Body Mass Index 19.05 (58.51 kg, 175.26 cm) pf1 04:52 Pain Scale: Adult pf1 Ruffin Coma Score: 06:47 Eye Response: spontaneous(4). Motor Response: obeys commands(6). Verbal Response: rv oriented(5). Total: 15. ED Course: 04:24 Patient arrived in ED. mr 04:53 Edilberto Connors MD is Attending Physician. alexander 04:55 Irwin, Alok, RN is Primary Nurse. rv 05:02 Patient has correct armband on for positive identification. Bed in low position. Call rv light in reach. Side rails up X 1. Provided Education on: FRACTURE. 05:02 No provider procedures requiring assistance completed. rv 05:15 Triage completed. pf1 05:46 Foot Right 3 View XRAY In Process Unspecified. EDMS 06:15 Assist provider with foreign body removal from right FOOT using NEEDLE Performed by rochelle Connors MD Patient tolerated well. 06:23 Casey Harden DPM is Referral Physician. alexander 06:48 Arm band placed on. rv 06:48 Patient did not have IV access during this emergency room visit. rv 07:05 Foot Right 3 View XRAY In Process Unspecified. EDMS Administered Medications: 06:14 Drug: Mupirocin Topical Ointment 2 % 1 application Route: Topical; Site: wound; rv 06:48 Follow up: Response: No adverse reaction rv 06:26 Drug: Cephalexin PO 500 mg Route: PO; rv 06:48 Follow up: Response: Medication administered at discharge. rv Medication: 05:02 VIS not applicable for this client. rv Outcome: 06:23 Discharge ordered by . alexander 06:47 Discharged to home ambulatory. rv 06:47 Condition: improved 06:47 Discharge instructions given to patient, Instructed on discharge instructions, follow up and referral plans. medication usage, Demonstrated understanding of instructions, follow-up care, medications, Prescriptions given X 2. 06:48 Patient left the ED. rv Signatures: Dispatcher [employer] EDEdilberto Patel MD MD cha Rivera, Mary mr Alok Gayle RN RN Ginger Beltran RN RN pf1
--- NOTE | 2023-01-10 06:23 | EDPHYS ---
Physician Documentation [facility] Name: Jed Hernandez Age: 62 yrs Sex: Male : 1960 Arrival Date: 01/10/2023 Time: 04:19 Bed 5 Private MD: NETTIE Physician Edilberto Connors HPI: 01/10 05:17 This 62 yrs old Male presents to ER via Ambulatory with complaints of Foot alexander Pain. 05:17 The patient presents with pain, that is chronic. The complaints affect the right foot, alexanedr heel of right foot. Context: The problem was sustained at an unknown location, resulted from the patient stepping on glass, sharp metal. Onset: The symptoms/episode began/occurred 6 month(s) ago. Modifying factors: The symptoms are alleviated by nothing, the symptoms are aggravated by nothing. Associated signs and symptoms: The patient has no apparent associated signs or symptoms. Severity of symptoms: At their worst the symptoms were mild, in the emergency department the symptoms are unchanged. The patient has not experienced similar symptoms in the past. 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 - Social history:: Smoking status: Patient/guardian denies using tobacco, the patient reports quitting approximately 40 years ago, Patient/guardian denies using alcohol, the patient reports quitting approximately 20 years ago. - Family history:: not pertinent. ROS: 05:17 Constitutional: Negative for fever, chills, and weight loss, Eyes: Negative for injury, alexander pain, redness, and discharge, ENT: Negative for injury, pain, and discharge, Neck: Negative for injury, pain, and swelling, Cardiovascular: Negative for chest pain, palpitations, and edema, Respiratory: Negative for shortness of breath, cough, wheezing, and pleuritic chest pain, Abdomen/GI: Negative for abdominal pain, nausea, vomiting, diarrhea, and constipation, Back: Negative for injury and pain, : Negative for injury, bleeding, discharge, and swelling, Skin: Negative for injury, rash, and discoloration, Neuro: Negative for headache, weakness, numbness, tingling, and seizure, Psych: Negative for depression, anxiety, suicide ideation, homicidal ideation, and hallucinations, Allergy/Immunology: Negative for hives, rash, and allergies, Endocrine: Negative for neck swelling, polydipsia, polyuria, polyphagia, and marked weight changes, Hematologic/Lymphatic: Negative for swollen nodes, abnormal bleeding, and unusual bruising. 05:17 MS/extremity: Positive for pain, of the heel of right foot. Exam: 05:17 Constitutional: This is a well developed, well nourished patient who is awake, alert, alexander and in no acute distress. Head/Face: Normocephalic, atraumatic. Eyes: Pupils equal round and reactive to light, extra-ocular motions intact. Lids and lashes normal. Conjunctiva and sclera are non-icteric and not injected. Cornea within normal limits. Periorbital areas with no swelling, redness, or edema. ENT: Nares patent. No nasal discharge, no septal abnormalities noted. Tympanic membranes are normal and external auditory canals are clear. Oropharynx with no redness, swelling, or masses, exudates, or evidence of obstruction, uvula midline. Mucous membranes moist. Neck: Trachea midline, no thyromegaly or masses palpated, and no cervical lymphadenopathy. Supple, full range of motion without nuchal rigidity, or vertebral point tenderness. No Meningismus. Chest/axilla: Normal chest wall appearance and motion. Nontender with no deformity. No lesions are appreciated. Cardiovascular: Regular rate and rhythm with a normal S1 and S2. No gallops, murmurs, or rubs. Normal PMI, no JVD. No pulse deficits. Respiratory: Lungs have equal breath sounds bilaterally, clear to auscultation and percussion. No rales, rhonchi or wheezes noted. No increased work of breathing, no retractions or nasal flaring. Abdomen/GI: Soft, non-tender, with normal bowel sounds. No distension or tympany. No guarding or rebound. No evidence of tenderness throughout. Back: No spinal tenderness. No costovertebral tenderness. Full range of motion. Male : Normal genitalia with no discharge or lesions. Skin: Warm, dry with normal turgor. Normal color with no rashes, no lesions, and no evidence of cellulitis. Neuro: Awake and alert, GCS 15, oriented to person, place, time, and situation. Cranial nerves II-XII grossly intact. Motor strength 5/5 in all extremities. Sensory grossly intact. Cerebellar exam normal. Normal gait. Psych: Awake, alert, with orientation to person, place and time. Behavior, mood, and affect are within normal limits. 05:17 Musculoskeletal/extremity: Extremities: grossly normal except: noted in the heel of right foot: pain, ROM: intact in all extremities, full active range of motion, full passive range of motion, Circulation is intact in all extremities. Sensation intact. Compartment Syndrome exam of affected extremity: is normal. Weight bearing: able to fully bear weight, DVT Exam: no swelling, negative Homans' sign noted on exam, no appreciated bluish discoloration, no erythema, no increased warmth, pain, tenderness. Vital Signs: 04:52 BP 151 / 97; Pulse 74; Resp 16; Temp 97.9; Pulse Ox 100% on R/A; Weight 58.51 kg; pf1 Height 5 ft. 9 in. ; Pain 0/10; 06:46 BP 152 / 99; Pulse 71; Resp 16; Temp 98; Pulse Ox 99% ; rv 04:52 Body Mass Index 19.05 (58.51 kg, 175.26 cm) pf1 04:52 Pain Scale: Adult pf1 [place] Coma Score: 06:47 Eye Response: spontaneous(4). Motor Response: obeys commands(6). Verbal Response: rv oriented(5). Total: 15. Procedures: 06:21 I \T\ D: Incision and drainage was performed for an abscess of the right Prepped with [facility] Betadine, Anesthetized with nothing. Incised with 18 GUAGE. Drained small amount Dressing: non-Adherent dressing, the patient tolerated the procedure well. Foreign Body Removal: a fragment of glass, a piece of metal, from the right heel of right foot, by needle, Dressinx4s were used to dress the wound, The patient tolerated the removal well. MDM: 04:53 Patient medically screened. [facility] 05:20 Differential diagnosis: foreign body, penetrating trauma, cellulitis. Data reviewed: [facility] vital signs, nurses notes, radiologic studies, plain films. Consideration of Admission/Observation Escalation of care including admission/observation considered. I considered the following discharge prescriptions or medication management in the emergency department Medications were administered in the Emergency Department. See MAR. Historians other than the Patient: patient. Care significantly affected by the following chronic conditions: Hypertension, cbp, edema, ddd. 01/10 05:12 Order name: Foot Right 3 View XRAY pf1 01/10 06:05 Order name: Foot Right 3 View XRAY pf1 01/10 06:14 Order name: Wound Care; Complete Time: 06:14 alexander Administered Medications: 06:14 Drug: Mupirocin Topical Ointment 2 % 1 application Route: Topical; Site: wound; rv 06:48 Follow up: Response: No adverse reaction rv 06:26 Drug: Cephalexin PO 500 mg Route: PO; rv 06:48 Follow up: Response: Medication administered at discharge. rv Disposition Summary: 01/10/23 06:23 Discharge Ordered Location: Home alexander Problem: new alexander Symptoms: have improved alexander Condition: Stable alexander Diagnosis - Pain in right foot - foreign body retained, REMOVED alexander Followup: alexander - With: Private Physician - When: 2 - 3 days - Reason: Recheck today's complaints, Continuance of care, Re-evaluation by your physician Followup: alexander - With: - When: 2 - 3 days - Reason: Recheck today's complaints, Continuance of care, Re-evaluation by your physician Discharge Instructions: - Discharge Summary Sheet alexander - Foreign Body alexander - Foot Pain alexander - Hand or Foot Foreign Body, Adult alexander - Skin Foreign Body [facility] Forms: - Medication Reconciliation Form [facility] - Thank You Letter [facility] - Antibiotic Education alexander - Prescription Opioid Use alexander - Patient Portal Instructions [facility] - Leadership Thank You Letter [facility] Prescriptions: - Centany 2 % Topical ointment - apply 1 application by TOPICAL route 3 times per day administer after dialysis alexander on dialysis days; 15 application; Refills: 0, Product Selection Permitted - Cephalexin 500 mg Oral Capsule - take 1 capsule by ORAL route every 6 hours for 7 days; 28 capsule; Refills: 0, alexander Product Selection Permitted Signatures: Dispatcher [employer] Edilberto Carey MD MD cha Vicente, Ronaldo, RN RN Ginger Beltran RN RN pf1
[2023-01-10] MEDS ORDERED: CEPHALEXIN 250 MG CAP ONE (06:30)
[2023-01-10 06:55] VITALS: BP 152/99; TEMP 98; O2SAT 99
--- NOTE | 2023-01-10 08:21 | RAD REPORT ---
EXAM DESCRIPTION: RAD - Foot Right 3 View - 01/10/2023 7:03 am CLINICAL HISTORY: post foreign body removal COMPARISON: Foot Right 3 View dated 01/10/2023 TECHNIQUE: Right foot, 3 views. FINDINGS: No fracture, dislocation or periosteal reaction. Scattered degenerative changes with bunio n. Up to moderate degenerative changes at the tibiotalar articulation. Small calcaneal spur. No air or foreign body in the soft tissues. IMPRESSION: No acute osseous abnormality. No appreciable soft tissue gas.
--- NOTE | 2023-01-10 08:24 | RAD REPORT ---
EXAM DESCRIPTION: RAD - Foot Right 3 View - 01/10/2023 5:44 am CLINICAL HISTORY: PAIN COMPARISON: No comparisons TECHNIQUE: Right foot, 3 views. FINDINGS: No fracture, dislocation or periosteal reaction. Scattered degenerative changes. Small [place] caneal spur. Bunion formation. No air or foreign body in the soft tissues. IMPRESSION: No acute osseous abnormality. Chronic findings as above.
== END 2023-01-10 06:48 | disposition home or self-care (01) ==
LOC: ER 04:19
PROC: 0H9MXZZ Drainage of Right Foot Skin, External Approach (ICD-10-PCS; principal; 2023-01-10)
DX: L02.611 Cutaneous abscess of right foot (principal); S90.851A Superficial foreign body, right foot, initial encounter
CPT/HCPCS: 99284

== ENCOUNTER 2023-03-14 15:25 | Emergency (ER) | payer OTHER ==
--- OUTSIDE RECORDS SUMMARY | 2023-03-14 15:32 | XMS REPORT | Continuity of Care Document ---
:1960 Author Organization [facility] t Address [address] [place] [address] Care Team Providers Name Role Phone Andrew Boyce MD Primary Care Physician COLLINS WOOTEN Attending Clinician Unavailable Kemar Simmons MD Attending Clinician [phone] Sheryl Ayala MA Attending Clinician Unavailable [...] Start Date Stop Date Quantity Comments Source [facility] of tobacco Chews [facility] Gender identity [facility] History of Social 2022-10-03 2022-10-[address] function 00:00:00 00:00:00 Hospital Alcohol intake 2019-05-20 2019-05-20 Current [facility] 00:00:00 00:00:00 non-drinker of Hospital alcohol (finding) Alcohol Comment 2016-09-23 2016-09-23 2003 [facility] 00:00:00 00:00:00 Hospital Cigarettes smoked 2016-09-23 2016-09-[address] current (pack per 00:00:00 00:00:00 Hospita l day) - Reported Tobacco use and 2016-09-23 2016-09-23 User of [facility] exposure 00:00:00 00:00:00 smokeless Hospital tobacco Sex Assigned At [birth year] [facility] 00:00:00 00:00:00 Hospital Smoking Status Start Date [...] Hospita tablet 47 l cyclobenzap Yes 10mg [id number] Take 10 mg Method[facility] rine 5-18 [id number] by mouth [address] (FLEXERIL) 16:39: 3D [...] MG 16:39: nightly. Hospita capsule 47 l armodafinil 2017-0 Yes 250mg QD Take 250 M ethodi (NUVIGIL) 5-[address] 250 mg 16:39: mouth Hospita tablet 47 daily. l simvastatin 2017-0 Yes 10mg QD Take 10 mg [facility] (ZOCOR) 10 5-[address] MG tablet 16:39: nightly. Hosp yadira 47 l propranolol 2017-0 Yes 120mg QD Take 120 M ethodi XL 5-[address] (INNOPRAN 16:39: mouth Hospita XL) 120 MG 47 nightly. l 24 hr capsule amLODIPine 2017-0 Yes 10mg QD Take 10 mg M ethodi (NORVASC) 5-[address] 10 mg 16:39: nightly. Hospita tablet 47 l cyclobenzap 2017-0 Yes 10mg Q.[id number] Take 10 mg Methodi rine 5-18 [id number] by mouth [address] (FLEXERIL) 16:39: 3D (three) Hosp yadira 10 mg 47 times a l tablet day as needed for muscle spasms. escitalopra 2017-0 Yes 20mg QD Take 20 mg Method[facility] m (LEXAPRO) 5-[address] 20 MG 16:39: nightly. Hospita tablet 47 l sucralfate 2016-0 Yes 1g Q.25D Take 1 g Me [...] Source Systolic blood 2022-10-03 17:44:37 146 mm[Hg] [facility] pressure Diastolic blood 2022-10-03 17:44:37 86 mm[Hg] [facility] Hospital pressure Heart rate 2022-10-03 17:44:37 83 /min [facility] Body temperature 2022-10-03 17:41:57 35.72 [facility] Respiratory rate 2022-10-03 17:41:57 18 /min [facility] Oxygen saturation in 2022-10-03 17:41:57 96 /min [facility] Arterial blood by Pulse oximetry Body height 2022-10-03 13:33:00 175.3 cm [facility] Body weight 2022-10-03 13:33:00 63.504 kg [facility] BMI 2022-10-03 13:33:00 20.67 kg/m2 [facility] Procedures Procedure Date / Time Performed Performing Clinician Sourc e CT CERVICAL SPINE WO 2022-10-03 14:01:04 Kemar Simmons [facility] CONTRAST [facility] CT HEAD WO CONTRAST 2022-10-03 13:56:35 Kemar Simmons [facility] Plan of Care Planned Activity Planned Date Details Comments Source Future Scheduled 2023-03-04 [facility] for [facility] Test 05:09:22 malignant neoplasm of colon (procedure) [code = 931233064] Future Scheduled 2023-03-04 [facility] for [facility] Test 05:09:22 malignant neoplasm of colon (procedure) [code = 704323242] Future Scheduled 2023-03-04 [facility]ening for [facility] Test 05:09:22 malignant neoplasm of colon (procedure) [code = 967909426] Future Scheduled 2023-03-04 Hepatitis C [facility] Test 05:09:22 screening (procedure) [code = 312368259] Future Scheduled 2023-03-04 [facility] for [facility] Test 05:09:22 malignant neoplasm of colon (procedure) [code = 949730118] Future Scheduled 2023-03-04 Screening for [facility] Test 05:09:22 malignant neoplasm of colon (procedure) [code = 197754085] Future Scheduled 2023-03-04 SHINGLES VACCINES [facility] Test 05:09:22 (1 of 2) [code = SHINGLES VACCINES (1 of 2)] Future Scheduled 2023-03-04 COVID-19 VACCINE (5 [facility] Test 05:09:22 - season) [code = COVID-19 VACCINE ( - season)] Future Scheduled 2023-03-04 INFLUENZA VACCINE [facility] Test 05:09:22 (#1) [code = INFLUENZA VACCINE (#1)] Future Scheduled 2023-01-09 [facility] for [facility] Test 07:04:26 malignant neoplasm of colon (procedure) [code = 249317318] Future Scheduled 2023-01-09 [facility]ening for [facility] Test 07:04:26 malignant neoplasm of colon (procedure) [code = 560012260] Future Scheduled 2023-01-09 [facility]ening for [facility] Test 07:04:26 malignant neoplasm of colon (procedure) [code = 845237077] Future Scheduled 2023-01-09 Hepatitis C [facility] Test 07:04:26 screening (procedure) [code = 928578977] Future Scheduled 2023-01-09 [facility]ening for [facility] Test 07:04:26 malignant neoplasm of colon (procedure) [code = 479369098] Future Scheduled 2023-01-09 [facility] for [facility] Test 07:04:26 malignant neoplasm of colon (procedure) [code = 658849065] Future Scheduled 2023-01-09 SHINGLES VACCINES [facility] Test 07:04:26 (1 of 2) [code = SHINGLES VACCINES (1 of 2)] Future Scheduled 2023-01-09 INFLUENZA VACCINE [facility] Test 07:04:26 (#1) [code = INFLUENZA VACCINE (#1)] Encounters Start End Encounter Admission Attending Care Care Encounter Source Date/Time Date/Time Type Type Clinicians Facility Department ID 2022-10-31 2022-11-01 Emergency Kimberly WOOTEN, [facility] [id number] 23:09:00 00:24:00 COLLINS [facility] 2022-10-03 2022-10-03 Emergency Simmons, 1.2.840.1 [id number] [facility] 08:36:00 12:49:[id number] [facility] 3.430.2.7 Hospit a .3.350778 l .8 2022-10-03 2022-10-03 Emergency Simmons, 1.2.840.1 [id number] [facility] 08:36:00 12:49:[id number] [facility] 3.430.2.7 Hospit a .3.946977 l .8 2022-06-25 2022-06-25 Telephone Ayala, 1.2.840.1 [id number] [facility] 00:00:00 00:00:[address] 3.430.2.7 Hospit a .3.371775 l .8 2022-06-25 2022-06-25 Telephone Ayala, 1.2.840.1 [id number] [facility] 00:00:00 00:00:[address] 3.430.2.7 Hospit a .3.097903 l .8 2021-03-15 2021-03-19 Inpatient E YSABEL, [facility] [address] [facility] 03:55:00 16:38:00 [facility] 2020-07-27 2020-07-27 Outpatient [facility] [id number] [facility] 10:02:00 23:59:00 DARRICK 2019-05-20 2019-05-20 Emergency [facility] [id number] [address] [place] 00:00:00 00:00:00 TEODORA [id number] [facility] 2019-05-03 2019-05-03 Emergency E [facility] [id number] [facility] 15:08:00 15:08:00 [facility] Results This patient has no known results.
[2023-03-14] MEDS ORDERED: LIDOCAINE 1% MPF 30 ML VIAL ONE (16:31)
--- NOTE | 2023-03-14 17:26 | EDPHYS ---
Physician Documentation [facility] Name: Jed Hernandez Age: 62 yrs Sex: Male : 1960 Arrival Date: 03/14/2023 Time: 15:25 Bed 14 Private MD: ED Physician Kendrick Higgins HPI: 03/14 16:00 This 62 yrs old Male presents to ER via Ambulatory with complaints of Laceration, Toe cp Injury. 16:00 The patient presents with a laceration, clean. The complaints affect the dorsal side of cp right great toe and right second and third toes. 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 Onset: The symptoms/episode began/occurred just prior to arrival. Associated signs and symptoms: The patient has no apparent associated signs or symptoms. 16:00 Patient reports decreased sensation to toes due to history of chronic back pain. 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 - Social history:: Smoking status: Patient denies any tobacco usage or history of. ROS: 16:05 Skin: Positive for laceration(s), of the right great toe and right second toe and right cp third toe, 16:05 Constitutional: Negative for body aches, chills, fever, poor PO intake, cp 16:05 Respiratory: Negative for cough, shortness of breath, wheezing, 16:05 Abdomen/GI: Negative for abdominal pain, nausea, vomiting, and diarrhea, 16:05 All other systems are negative, Exam: 16:10 Constitutional: The patient appears in no acute distress, alert, awake, non-toxic, well cp developed, well nourished, 16:10 Head/Face: Normocephalic, atraumatic. cp 16:10 Chest/axilla: Inspection: normal, 16:10 Cardiovascular: Rate: normal, Pulses: Pulses are 2+ in right dorsalis pedis artery. Edema: is not appreciated, JVD: is not appreciated, 16:10 Respiratory: the patient does not display signs of respiratory distress, Respirations: normal, no use of accessory muscles, no retractions, labored breathing, is not present, 16:10 Abdomen/GI: Inspection: abdomen appears normal, 16:10 Musculoskeletal/extremity: ROM: full active range of motion, in the right great toe and right second toe and right third toe, Perfusion: the extremity is normally perfused throughout, decreased sensation, Tendon exam: specific tendon testing normal through active and passive range of motion 16:10 Skin: injury, laceration(s), of the dorsal side of right great toe and right second toe and right third toe, that can be described as clean, linear, with mild bleeding, Vital Signs: 15:39 Pulse 108; Resp 19; Temp 98.8; Pulse Ox 100% on R/A; iw 15:41 BP 151 / 107; iw 16:30 BP 176 / 96; Pulse 98; Resp 16; Pulse Ox 100% on R/A; me1 17:00 BP 169 / 98; Pulse 93; Resp 18; Pulse Ox 100% on R/A; me1 17:54 BP 189 / 98; Pulse 100; Resp 18; Pulse Ox 96% on R/A; me1 Laceration: 17:33 Wound Repair of 4.5cm ( 1.8in ) subcutaneous laceration to distal phalanx of right cp great toe. Linear shaped.. Distal neuro/vascular/tendon intact. Anesthesia: Wound infiltrated with 4 mls of 1% lidocaine. Wound prep: Moderate cleansing by nurse, Wound irrigation by me. Skin closed with 9 5-0 Prolene using interrupted sutures and sterile technique. Dressed with Bacitracin, 4x4's. Patient tolerated well. 17:33 Wound Repair of 2cm ( 0.8in ) subcutaneous laceration to dorsal side middle phalanx cp right second toe. Linear shaped.. Distal neuro/vascular/tendon intact. Anesthesia: Wound infiltrated with 2 mls of 1% lidocaine. Wound prep: Moderate cleansing by nurse, Wound irrigation by me. Skin closed with 3 5-0 Prolene using interrupted sutures and sterile technique. Dressed with Bacitracin, 4x4's. Patient tolerated well. 17:33 Wound Repair of 2cm ( 0.8in ) subcutaneous laceration to dorsal side middle phalanx cp right third toe. Linear shaped.. Distal neuro/vascular/tendon intact. Anesthesia: Wound infiltrated with 2 mls of 1% lidocaine. Wound prep: Moderate cleansing by nurse, Wound irrigation by me. Skin closed with 3 5-0 Prolene using interrupted sutures and sterile technique. Dressed with Bacitracin, 4x4's. Patient tolerated well. MDM: 15:46 Patient medically screened. cp 16:00 Differential diagnosis: fracture, simple laceration, tendon injury. cp 17:25 Data reviewed: vital signs, nurses notes. cp 17:25 I considered the following discharge prescriptions or medication management in the cp emergency department Medications were administered in the Emergency Department. See MAR. Test considered but Not performed: X-ray: right foot. Care significantly affected by the following chronic conditions: Hypertension, back pain, neuropathy. Counseling: I had a detailed discussion with the patient and/or guardian regarding the historical points, exam findings, and any diagnostic results supporting the discharge/admit diagnosis, the need for outpatient follow up, a family practitioner, to return to the emergency department if symptoms worsen or persist or if there are any questions or concerns that arise at home. Response to treatment: the patient's symptoms have markedly improved after treatment, and as a result, I will discharge patient. Special discussion: wound care and signs of infection. 03/14 15:46 Order name: Wound Care: please clean and irrigate wounds; Complete Time: 16:27 cp 03/14 15:46 Order name: Dressing - Wound; Complete Time: 17:30 cp 03/14 15:46 Order name: Gloves, Sterile; Complete Time: 17:30 cp 03/14 15:46 Order name: Setup Suture Tray; Complete Time: 17:30 cp 03/14 17:24 Order name: Wound dressing; Complete Time: 17:31 cp Administered Medications: 17:06 Drug: Lidocaine Infiltration (1 %) 20 ml 20 ml Infiltration once; to bedside {Note: me1 administered by KEYUR Leigh.} Volume: 20 ml; Route: Infiltration; Disposition Summary: 03/14/23 17:25 Discharge Ordered Notes: Location: Home cp Problem: new cp Symptoms: have improved cp Condition: Stable cp Diagnosis - Laceration without foreign body of right great toe without damage to nail cp - Laceration without foreign body of right lesser toe(s) without damage to nail, cp initial encounter Followup: cp - With: Private Physician - When: 10 - 14 days - Reason: Staple/Suture removal Discharge Instructions: - Discharge Summary Sheet cp - Laceration Care, Adult cp Forms: - Medication Reconciliation Form cp - Thank You Letter cp - Antibiotic Education cp - Prescription Opioid Use cp - Patient Portal Instructions cp - Leadership Thank You Letter cp Prescriptions: - Cephalexin 500 mg Oral Capsule - take 1 capsule ORAL route every 8 hours for 10 days; 30 capsule; Refills: 0, cp Product Selection Permitted Addendum: 03/16/2023 09:02 Co-signature as Attending Physician, Kendrick Higgins MD I reviewed the patient's care r n provided by the Advanced Practice Provider and agree with the diagnosis and treatment plan. Signatures: Marjorie Cueva, RN RN Kendrick Muñiz MD MD rn Edilberto Rodarte PA PA cp Nadine Gonzalez, RN RN me1
--- NOTE | 2023-03-14 17:26 | ER ---
Nurse's Notes [facility] Name: Jed Hernandez Age: 62 yrs Sex: Male : 1960 Arrival Date: 03/14/2023 Time: 15:25 Bed 14 Private MD: Diagnosis: Laceration without foreign body of right great toe without damage to nail;Laceration without foreign body of right lesser toe(s) without damage to nail, initial encounter Presentation: 03/14 15:39 Chief complaint: Patient states: was cutting cardboard, plastic, the utility knife went iw through and cut off a piece of big toe and cut the next three toes. Coronavirus screen: At this time, the client does not indicate any symptoms associated with coronavirus-19. Ebola Screen: Patient negative for fever greater than or equal to 101.5 degrees Fahrenheit, and additional compatible Ebola Virus Disease symptoms Patient denies exposure to infectious person. Patient denies travel to an Ebola-affected area in the 21 days before illness onset. Initial Sepsis Screen: Does the patient meet any 2 criteria? No. Patient's initial sepsis screen is negative. Does the patient have a suspected source of infection? No. Patient's initial sepsis screen is negative. Risk Assessment: Do you want to hurt yourself or someone else? Patient reports no desire to harm self or others. Onset of symptoms was March 14, 2023. 15:39 Method Of Arrival: Ambulatory iw 15:39 Acuity: GLORIA 3 iw 17:54 Complicating Factors: There are no complicating factors for this patient. me1 Triage Assessment: 17:54 General: Appears comfortable, well groomed, well developed, well nourished. Injury me1 Description: Laceration sustained to laceration to left great toe and 2nd- 4th toes. Historical: - Allergies: 15:40 No Known Allergies; iw - PMHx: 15:40 Arthritis; chronic back pain; DDD; EDEMA; Hypercholesterolemia; Hypertensive disorder; iw - PSHx: 15:40 back surgery; brain surgery with POWDERED METAL SUPERVISOR shunt; inguinal hernia; left shoulder; iw - Immunization history:: Adult Immunizations unknown. - Social history:: Smoking status: Patient denies any tobacco usage or history of. Screenin:27 [facility] ED Fall Risk Assessment (Adult) History of falling in the last 3 months, me1 including since admission No falls in past 3 months (0 pts) Confusion or Disorientation No (0 pts) Intoxicated or Sedated No (0 pts) Impaired Gait No (0 pts) Mobility Assist Device Used No (0 pt) Altered Elimination No (0 pt) Score/Fall Risk Level 0 - 2 = Low Risk. 16:27 Abuse screen: Denies threats or abuse. Nutritional screening: No deficits noted. me1 Tuberculosis screening: No symptoms or risk factors identified. Assessment: 16:27 General: Appears comfortable, well groomed, well developed, well nourished, Behavior is me1 calm, cooperative, appropriate for age, Reports "was cutting cardboard, plastic, the utility knife went through and cut off a piece of big toe and cut the next three toes". General: Reports States he took two norco at home and pain is well managed. Pain: Denies pain. Complains of pain in right toes Pain at worst was 10 out of 10 on a pain scale. Quality of pain is described as throbbing. Neuro: Level of Consciousness is awake, alert, obeys commands, Oriented to person, place, time, situation, Appropriate for age. Cardiovascular: Capillary refill < 3 seconds Patient's skin is warm and dry. Respiratory: Airway is patent Respiratory effort is even, unlabored, Respiratory pattern is regular, symmetrical. Derm: Wound noted right great toe and 2nd thru 4th toes. Wound is lacerations. Musculoskeletal: laceration to right great toe and 2nd thru 4th toes. 16:42 Injury Description: Laceration is bleeding moderately. me1 Vital Signs: 15:39 Pulse 108; Resp 19; Temp 98.8; Pulse Ox 100% on R/A; iw 15:41 BP 151 / 107; iw 16:30 BP 176 / 96; Pulse 98; Resp 16; Pulse Ox 100% on R/A; me1 17:00 BP 169 / 98; Pulse 93; Resp 18; Pulse Ox 100% on R/A; me1 17:54 BP 189 / 98; Pulse 100; Resp 18; Pulse Ox 96% on R/A; me1 ED Course: 15:31 Patient arrived in ED. ts1 15:34 Edilberto Rodarte PA is PHCP. cp 15:34 Kendrick Higgins MD is Attending Physician. cp 15:40 Triage completed. iw 16:14 Nadine Gonzalez, RN is Primary Nurse. me1 16:27 Patient has correct armband on for positive identification. Bed in low position. Call me1 light in reach. Side rails up X 1. Provided Education on: POC. Verbalized understanding.. 16:27 Arm band placed on Patient placed in waiting room. me1 16:27 No provider procedures requiring assistance completed. me1 17:56 Patient did not have IV access during this emergency room visit. me1 Administered Medications: 17:06 Drug: Lidocaine Infiltration (1 %) 20 ml 20 ml Infiltration once; to bedside {Note: me1 administered by KEYUR Leigh.} Volume: 20 ml; Route: Infiltration; Medication: 17:54 VIS not applicable for this client. me1 Outcome: 17:25 Discharge ordered by MD. cp 17:55 Discharged to home ambulatory, me1 17:55 Condition: stable 17:55 Discharge instructions given to patient, Instructed on discharge instructions, follow up and referral plans. medication usage, Demonstrated understanding of instructions, follow-up care, medications, Prescriptions given X 1, 17:56 Patient left the ED. me1 Signatures: Marjorie Cueva, RN RN Edilberto Rodarte PA PA cp Simpson, Tanya, JUNIOR PAS ts1 Nadine Gonzalez, RN RN me1 Corrections: (The following items were deleted from the chart) 16:27 15:39 Chief complaint: Patient states: was cutting cardboard, plastic, the utility me1 knife went through and cut off a piece of big toe and cut the next three toes 17:07 17:06 Lidocaine Infiltration (1 %) 20 ml 20 ml Infiltration; administered by Edilberto Rodarte NP ny1
[2023-03-14 18:09] VITALS: TEMP 98.8
[2023-03-14 18:13] VITALS: BP 189/98; O2SAT 96
== END 2023-03-14 17:56 | disposition home or self-care (01) ==
LOC: ER 15:25
PROC: 0HQMXZZ Repair Right Foot Skin, External Approach (ICD-10-PCS; principal; 2023-03-14)
DX: S91.111A Laceration without foreign body of right great toe without damage to nail, initial encounter (principal); S91.114A Laceration without foreign body of right lesser toe(s) without damage to nail, initial encounter
CPT/HCPCS: 99283; 12004; J2001

== ENCOUNTER 2023-03-29 10:03 | Emergency (ER) | payer OTHER ==
--- OUTSIDE RECORDS SUMMARY | 2023-03-29 10:06 | XMS REPORT | Continuity of Care Document ---
:1960 Author Organization [facility] t Address [address] [place] [address] Care Team Providers Name Role Phone Carli SMALLS, Andrew Primary Care Physician Iris SMALLS, Kemar Schilling Attending Clinician [phone] Sheryl Ayala MA Attending Clinician Unavailable TEODORA LAURENT Attending Clinician Unavailable Payers Payer Name Policy Type [...] Tobacco [facility] History of Social 2022-10-03 2022-10-[address] function 00:00:00 00:00:00 Hospital Alcohol intake 2019-05-20 2019-05-20 Current [facility] 00:00:00 00:00:00 non-drinker of Hospital alcohol (finding) Alcohol Comment 2016-09-23 2016-09-23 2003 [facility] 00:[facility]:00 [facility]00 [facility] Cigarettes smoked 2016-09-23 2016-09-[address] current (pack per 00:00:00 00:00:00 Hospita l day) - Reported Tobacco use and 2016-09-23 2016-09-23 [facility] of [facility] exposure [facility]:00 00:00:00 smokeless Hospital tobacco Sex Assigned At [birth year] [facility] 00:[facility] Smoking Status Start Date Stop Date Source Ex-smoker 2016-09-23 00:00:00 2016-09-23 00:00:00 [facility] Medications Ordered Filled Start Stop Current Ordering Indication Dosage Frequency Signature Comments Components Source Medication Medication Date Date Medication? Clinician (SIG) Name Name propranolol Yes 120mg QD Take 120 M ethodi XL 5-[address] (INNOPRAN 16:39: mouth Hospita XL) 120 MG 47 nightly. l 24 hr capsule amLODIPine Yes 10mg QD Take 10 mg M ethodi (NORVASC) 5-[address] 10 mg 16:39: nightly. Hospita tablet 47 l cyclobenzap 0 Yes 10mg Q.[id number] Take 10 mg Methodi rine 5-18 [id number] [address] mouth [address] (FLEXERIL) 16:39: 3D [...] tablet 47 times a l day. omeprazole Yes 40mg QD Take 40 mg M ethodi (PriLOSEC) 5-[address] 40 MG 16:39: nightly. Hospita capsule 47 l armodafinil 0 Yes 250mg QD Take 250 M ethodi (NUVIGIL) 5-[address] 250 mg 16:39: mouth [facility]osp[facility] tablet 47 daily. l simvastatin 20170 Yes 10mg QD Take 10 mg Methodi (ZOCOR) 10 5-[address] MG tablet 16:39: nightly. Hosp yadira 47 l propranolol 2016- Yes 120mg QD Take 120 M ethodi XL 5-[address] (INNOPRAN 16:39: mouth [facility]osp[facility] XL) 120 MG 47 nightly. l 24 hr capsule amLODIPine 2017-0 Yes 10mg QD Take 10 mg M ethodi (NORVASC) 5-[address] 10 mg 16:39: nightly. Hospita tablet 47 l cyclobenzap 2017-0 Yes 10mg Q.[id number] Take 10 mg Methodi rine 5-18 [id number] [address] mouth [address] (FLEXERIL) 16:39: 3D (three) Hosp yadira 10 mg 47 times a l tablet day as needed for muscle spasms. escitalopra 2017-0 Yes 20mg QD Take 20 mg Methodi m (LEXAPRO) 5-[address] 20 MG 16:39: nightly. Hospita tablet 47 l sucralfate 2017-0 Yes 1g Q.25D Take 1 g Me [...] tablet 47 l cyclobenzap 2017-0 Yes 10mg Q.13061329 Take 10 mg Methodi rine 5-18 [id number] [address] mouth [address] (FLEXERIL) 16:39: 3D (three) Hosp yadira 10 mg 47 times a l tablet day as needed for muscle spasms. escitalopra 2017-0 Yes 20mg QD Take 20 mg Method[facility] (LEXAPRO) 5-[address] 20 MG 16:39: nightly. Hospita tablet 47 l sucralfate 2017-0 Yes 1g Q.25D Take 1 g Me [...] mouth Hospita tablet 47 daily. l simvastatin 2017- Yes 10mg QD Take 10 mg Methodi (ZOCOR) 10 5-[address] MG tablet 16:39: nightly. Hosp yadira 47 l Vital Signs Vital Name Observation Time Observation Value Comments Source Systolic blood 2022-10-03 17:44:37 146 mm[Hg] [facility] pressure Diastolic blood 2022-10-03 17:44:37 86 mm[Hg] [facility] pressure Heart rate 2022-10-03 17:44:37 83 /min [facility] Body temperature 2022-10-03 17:41:57 35.72 [facility]ster [facility] Respiratory rate 2022-10-03 17:41:57 18 /min [facility] Oxygen saturation in 2022-10-03 17:41:57 96 /min [facility] Arterial blood by Pulse oximetry Body height 2022-10-03 13:33:00 175.3 cm [facility] Body weight 2022-10-03 13:33:00 63.504 kg [facility] BMI 2022-10-03 13:33:00 20.67 kg/m2 [facility] Procedures Procedure Date / Time Performed Performing Clinician Sourc e CT CERVICAL SPINE WO 2022-10-03 14:01:04 Kemar Simmons [facility] CONTRAST [facility] CT HEAD WO CONTRAST 2022-10-03 13:56:35 Kemar Simmons [facility] Plan of Care Planned Activity Planned Date Details Comments Source Future Scheduled 2023-03-04 Screening for [facility] Test 05:09:22 malignant neoplasm of colon (procedure) [code = 784403090] Future Scheduled 2023-03-04 Screening for [facility] Test 05:09:22 malignant neoplasm of colon (procedure) [code = 012701928] Future Scheduled 2023-03-04 Screening for [facility] Test 05:09:22 malignant neoplasm of colon (procedure) [code = 517590882] Future Scheduled 2023-03-04 [facility] Test 05:09:22 screening (procedure) [code = 824241078] Future Scheduled 2023-03-04 Screening for [facility] Test 05:09:22 malignant neoplasm of colon (procedure) [code = 080448294] Future Scheduled 2023-03-04 Screening for [facility] Test 05:09:22 malignant neoplasm of colon (procedure) [code = 297623448] Future Scheduled 2023-03-04 [facility]LES VACCINES [facility] Test 05:09:22 (1 of 2) [code = SHINGLES VACCINES (1 of 2)] Future Scheduled 2023-03-04 COVID-19 VACCINE ([facility] 05:09:22 - season) [code = COVID-19 VACCINE (5 - season)] Future Scheduled 2023-03-04 INFLUENZA VACCINE [facility] Test 05:09:22 (#1) [code = INFLUENZA VACCINE (#1)] Future Scheduled 2023-03-04 Screening for [facility] Test 05:09:22 malignant neoplasm of colon (procedure) [code = 823358365] Future Scheduled 2023-03-04 Screening for [facility] Test 05:09:22 malignant neoplasm of colon (procedure) [code = 954522325] Future Scheduled 2023-03-04 Screening for [facility] Test 05:09:22 malignant neoplasm of colon (procedure) [code = 339530962] Future Scheduled 2023-03-04 [facility] 05:09:22 screening (procedure) [code = 233534540] Future Scheduled 2023-03-04 [facility] for [facility] Test 05:09:22 malignant neoplasm of colon (procedure) [code = 032028017] Future Scheduled 2023-03-04 [facility] for [facility] Test 05:09:22 malignant neoplasm of colon (procedure) [code = 645316029] Future Scheduled 2023-03-04 [facility]LES VACCINES [facility] Test 05:09:22 (1 of 2) [code = SHINGLES VACCINES (1 of 2)] Future Scheduled 2023-03-04 COVID-19 VACCINE (5 [facility] Test 05:09:22 - season) [code = COVID-19 VACCINE (5 - season)] Future Scheduled 2023-03-04 INFLUENZA VACCINE [facility] Test 05:09:22 (#1) [code = INFLUENZA VACCINE (#1)] Future Scheduled 2023-01-09 [facility]ening for [facility] Test 07:04:26 malignant neoplasm of colon (procedure) [code = 582118115] Future Scheduled 2023-01-09 Screening for [facility] Test 07:04:26 malignant neoplasm of colon (procedure) [code = 063462590] Future Scheduled 2023-01-09 Screening for [facility] Test 07:04:26 malignant neoplasm of colon (procedure) [code = 605910917] Future Scheduled 2023-01-09 [facility] 07:04:26 screening (procedure) [code = 518784637] Future Scheduled 2023-01-09 [facility] for [facility] Test 07:04:26 malignant neoplasm of colon (procedure) [code = 640446151] Future Scheduled 2023-01-09 [facility]ening for [facility] Test 07:04:26 malignant neoplasm of colon (procedure) [code = 237386624] Future Scheduled 2023-01-09 SHINGLES VACCINES [facility] Test 07:04:26 (1 of 2) [code = SHINGLES VACCINES (1 of 2)] Future Scheduled 2023-01-09 INFLUENZA VACCINE [facility] Test 07:04:26 (#1) [code = INFLUENZA VACCINE (#1)] Encounters Start End Encounter Admission Attending Care Care Encounter Source Date/Time Date/Time Type Type Clinicians Facility Department ID 2022-10-03 2022-10-03 [facility], 1.2.840.1 [id number] Methodi 08:36:00 12:49:00 Kemar [id number] 050 [facility] 3.430.2.7 Hospit a .3.397866 l .8 2022-10-03 2022-10-03 [facility], 1.2.840.1 [id number] Method[facility] 08:36:00 12:49:[id number] [facility] 3.430.2.7 Hospit a .3.193667 l .8 2022-06-25 2022-06-25 Telephone [facility], 1.2.840.1 [id number] Methodi 00:00:00 00:00:[id number] 3.430.2.7 Hospit a .3.415702 l .8 2022-06-25 2022-06-25 Telephone [facility], 1.2.840.1 [id number] Methodi 00:00:00 00:00:[id number] 3.430.2.7 Hospit a .3.981303 l .8 2019-05-20 2019-05-20 Emergency [facility] [id number] [address] [place] [address] 00:00:00 00:00:00 TEODORA Malik [facility] Results This patient has no known results.
--- NOTE | 2023-03-29 10:34 | EDPHYS ---
Physician Documentation [facility] Name: Jed Hernandez Age: 63 yrs Sex: Male : 1960 Arrival Date: 03/29/2023 Time: 10:03 Bed 11 Private MD: NETTIE Physician Edilberto Connors HPI: 03/29 14:10 This 63 yrs old Male presents to ER via Ambulatory with complaints of Suture Removal. snw 14:10 The patient has sutures on the plantar aspect of right second toe and plantar aspect of snw right first toe and plantar aspect of right third toe. Sutures/annamaria progress: The patient's wound displays wounds look to be healing, great toe mildly too moist, given hibiclens to use and will give bactroban for nasal use as pt with hx MRSA, wound edges well approximated. The patient has been recently seen by a physician: 03/14/23 to have sutures placed after accidentally cutting with a box blade. Historical: - Allergies: 10:18 No Known Allergies; ap3 - Home Meds: 10:19 amlodipine 10 mg tablet [Active]; ap3 - PMHx: 10:18 Arthritis; chronic back pain; DDD; EDEMA; Hypercholesterolemia; Hypertensive disorder; ap3 - PSHx: 10:18 back surgery; brain surgery with BINDER LOCKSTITCH shunt; inguinal hernia; left shoulder; ap3 - Immunization history:: Client reports receiving the 2nd dose of the Covid vaccine. - Social history:: Smoking status: Patient reports use of chewing tobacco. ROS: 14:09 Constitutional: Negative for fever, chills, and weight loss, Eyes: Negative for injury, snw pain, redness, and discharge, ENT: Negative for injury, pain, and discharge, Neck: Negative for injury, pain, and swelling, Cardiovascular: Negative for chest pain, palpitations, and edema, Respiratory: Negative for shortness of breath, cough, wheezing, and pleuritic chest pain, Abdomen/GI: Negative for abdominal pain, nausea, vomiting, diarrhea, and constipation, Back: Negative for injury and pain, : Negative for injury, bleeding, discharge, and swelling, MS/Extremity: Negative for injury and deformity, Neuro: Negative for headache, weakness, numbness, tingling, and seizure, Psych: Negative for depression, anxiety, suicide ideation, homicidal ideation, and hallucinations, 14:09 Skin: Positive for laceration(s), of the plantar aspect of right third toe and plantar aspect of right second toe and plantar aspect of right first toe, Exam: 12:25 Constitutional: This is a well developed, well nourished patient who is awake, alert, snw and in no acute distress. Head/Face: Normocephalic, atraumatic. Eyes: Pupils equal round and reactive to light, extra-ocular motions intact. Lids and lashes normal. Conjunctiva and sclera are non-icteric and not injected. Cornea within normal limits. Periorbital areas with no swelling, redness, or edema. ENT: Nares patent. No nasal discharge, no septal abnormalities noted. Tympanic membranes are normal and external auditory canals are clear. Oropharynx with no redness, swelling, or masses, exudates, or evidence of obstruction, uvula midline. Mucous membranes moist. edentulous Neck: Trachea midline, no thyromegaly or masses palpated, and no cervical lymphadenopathy. Supple, full range of motion without nuchal rigidity, or vertebral point tenderness. No Meningismus. Chest/axilla: Normal chest wall appearance and motion. Nontender with no deformity. No lesions are appreciated. Cardiovascular: Regular rate and rhythm with a normal S1 and S2. No gallops, murmurs, or rubs. Normal PMI, no JVD. No pulse deficits. Respiratory: Lungs have equal breath sounds bilaterally, clear to auscultation and percussion. No rales, rhonchi or wheezes noted. No increased work of breathing, no retractions or nasal flaring. Abdomen/GI: Soft, non-tender, with normal bowel sounds. No distension or tympany. No guarding or rebound. No evidence of tenderness throughout. Back: No spinal tenderness. No costovertebral tenderness. Full range of motion. Skin: Warm, dry with normal turgor. Normal color with no rashes, no lesions, and no evidence of cellulitis. first-third toes with sutures placed 03/14/23. no dc, redness. great toe remains too moist MS/ Extremity: Pulses equal, no cyanosis. Neurovascular intact. Full, normal range of motion. Neuro: Awake and alert, GCS 15, oriented to person, place, time, and situation. Cranial nerves II-XII grossly intact. Motor strength 5/5 in all extremities. Sensory grossly intact. Cerebellar exam normal. Normal gait. Psych: Awake, alert, with orientation to person, place and time. Behavior, mood, and affect are within normal limits. Vital Signs: 10:16 BP 192 / 97; Pulse 95; Resp 18; Temp 99; Pulse Ox 100% ; Weight 63.5 kg; Pain 0/10; ap3 10:16 Pain Scale: Adult ap3 MDM: 10:22 Patient medically screened. snw 12:27 Data reviewed: vital signs, nurses notes. I considered the following discharge snw prescriptions or medication management in the emergency department Medications were administered in the Emergency Department. See MAR. Counseling: I had a detailed discussion with the patient and/or guardian regarding the historical points, exam findings, and any diagnostic results supporting the discharge/admit diagnosis, the need for outpatient follow up, for definitive care, to return to the emergency department if symptoms worsen or persist or if there are any questions or concerns that arise at home. Response to treatment: the patient's symptoms have markedly improved after treatment. Special discussion: I discussed in detail with the patient the higher chance of wound infection based on his presenting history. Based on the history and exam findings, there is no indication for further emergent testing or inpatient evaluation. I discussed with the patient/guardian the need to see the primary care provider for further evaluation of the symptoms. wound care instructions discussed. pt with hx of MRSA, will give rx for mupirocin for intranasal use x 1 week. Administered Medications: No medications were administered Disposition Summary: 03/29/23 10:33 Discharge Ordered Notes: Location: Home snw Condition: Stable snw Diagnosis - Encounter for removal of sutures snw Followup: snw - With: Emergency Department - When: As needed - Reason: Worsening of condition Followup: snw - With: Private Physician - When: 2 - 3 days - Reason: Recheck today's complaints, Continuance of care, Re-evaluation by your physician Discharge Instructions: - Discharge Summary Sheet snw - Suture Removal, Care After snw - Wound Care, Adult snw Forms: - Medication Reconciliation Form snw - Thank You Letter snw - Antibiotic Education snw - Prescription Opioid Use snw - Patient Portal Instructions snw - Leadership Thank You Letter snw Prescriptions: - mupirocin 2 % Topical ointment - apply 1 application INTRANASAL route every day at bedtime for 7 days; 15 gram snw tube; Refills: 0, Product Selection Permitted Signatures: Lizz Norton, DISK RECORDIST-C DISK RECORDIST-Csnw Lucero Reaves, RN RN ap3
--- NOTE | 2023-03-29 10:34 | ER ---
Nurse's Notes [facility] Name: Jed Hernandez Age: 63 yrs Sex: Male : 1960 Arrival Date: 03/29/2023 Time: 10:03 Bed 11 Private MD: Diagnosis: Encounter for removal of sutures Presentation: 03/29 10:16 Chief complaint: Patient states: he was here approx 2 weeks ago and received 15 ap3 stitches on the toes of his right foot. Patient states that he is here to have the site evaluated and sutures removed. Coronavirus screen: At this time, the client does not indicate any symptoms associated with coronavirus-19. Ebola Screen: No symptoms or risks identified at this time. Initial Sepsis Screen: Does the patient meet any 2 criteria? HR > 90 bpm. Does the patient have a suspected source of infection? Yes: Skin breakdown/wound. Risk Assessment: Do you want to hurt yourself or someone else? Patient reports no desire to harm self or others. Onset of symptoms is unknown. 10:16 Method Of Arrival: Ambulatory ap3 10:16 Acuity: GLORIA 3 ap3 Triage Assessment: 10:18 General: Appears in no apparent distress. Behavior is calm, cooperative, appropriate ap3 for age. Pain: Denies pain. Neuro: Level of Consciousness is awake, alert, obeys commands, Oriented to person, place, time, situation. Cardiovascular: Patient's skin is warm and dry. Respiratory: Airway is patent Respiratory effort is even, unlabored, Respiratory pattern is regular, symmetrical. Derm: Wound noted plantar aspect of right first toe, plantar aspect of right second toe and plantar aspect of right third toe. Historical: - Allergies: 10:18 No Known Allergies; ap3 - Home Meds: 10:19 amlodipine 10 mg tablet [Active]; ap3 - PMHx: 10:18 Arthritis; chronic back pain; DDD; EDEMA; Hypercholesterolemia; Hypertensive disorder; ap3 - PSHx: 10:18 back surgery; brain surgery with FISH CAKE MAKER shunt; inguinal hernia; left shoulder; ap3 - Immunization history:: Client reports receiving the 2nd dose of the Covid vaccine. - Social history:: Smoking status: Patient reports use of chewing tobacco. Screenin:19 Abuse screen: Denies threats or abuse. Nutritional screening: No deficits noted. ap3 Tuberculosis screening: No symptoms or risk factors identified. 10:30 [facility] ED Fall Risk Assessment (Adult) Score/Fall Risk Level 0 - 2 = Low Risk hb Oriented to surroundings, Maintained a safe environment, Educated pt \T\ family on fall prevention, incl call for assistance when getting out of bed. Assessment: 10:30 General: Appears in no apparent distress. Behavior is calm, cooperative. Pain: Denies hb pain. Neuro: Level of Consciousness is awake, alert, obeys commands, Oriented to person, place, time, situation. Cardiovascular: Patient's skin is warm and dry. Respiratory: Respiratory effort is even, unlabored, Respiratory pattern is regular, symmetrical. GI: No signs and/or symptoms were reported involving the gastrointestinal system. : No signs and/or symptoms were reported regarding the genitourinary system. EENT: No signs and/or symptoms were reported regarding the EENT system. Derm: Skin is pink, warm \T\ dry. Musculoskeletal: No signs and/or symptoms reported regarding the musculoskeletal system. Vital Signs: 10:16 BP 192 / 97; Pulse 95; Resp 18; Temp 99; Pulse Ox 100% ; Weight 63.5 kg; Pain 0/10; ap3 10:16 Pain Scale: Adult ap3 ED Course: 10:04 Patient arrived in ED. rg4 10:14 Lizz Norton FNP-C is [facility]. snw 10:14 Edilberto Connors MD is Attending Physician. snw 10:18 Triage completed. ap3 10:19 Arm band placed on left wrist. ap3 10:43 Patient has correct armband on for positive identification. Provided Education on: hb wound care, mediations . 10:43 No provider procedures requiring assistance completed. Patient did not have IV access hb during this emergency room visit. Administered Medications: No medications were administered Medication: 10:30 VIS not applicable for this client. hb Outcome: 10:33 Discharge ordered by . snw 10:43 Discharged to home ambulatory, hb 10:43 Condition: stable 10:43 Discharge instructions given to patient, Instructed on discharge instructions, follow up and referral plans. medication usage, wound care, Demonstrated understanding of instructions, follow-up care, medications, wound care, Prescriptions given X 1, 10:44 Patient left the ED. hb Signatures: Lizz Norton FNP-C FNP-Camilla Henry RN RN hb Wilma Colin rg4 Lucero Reaves, RN RN ap3
[2023-03-29 10:49] VITALS: BP 192/97; TEMP 99; O2SAT 100
== END 2023-03-29 10:44 | disposition home or self-care (01) ==
LOC: ER 10:03
DX: Z48.02 Encounter for removal of sutures (principal)
CPT/HCPCS: 99283

== ENCOUNTER 2023-10-02 17:59 | Emergency (ER) | payer OTHER ==
--- NOTE | 2023-10-02 20:39 | RAD REPORT ---
EXAM DESCRIPTION: RAD - Lumbar Spine 3 Views - 10/02/2023 8:00 pm CLINICAL HISTORY: Back pain FINDINGS: Postsurgical changes lumbar spine. Neurostimulator device is place. Bones are osteoporotic. Mild to moderate rotoscoliosis involves the spine. Marked spondylosis is present diffusely throughout the lumbar spine. No fracture or dislocation noted
--- NOTE | 2023-10-02 20:39 | RAD REPORT ---
EXAM DESCRIPTION: RAD - Hip Left 2 View - 10/02/2023 8:00 pm CLINICAL HISTORY: Left hip pain FINDINGS: No fracture or dislocation is seen. Mild osteoarthritis left hip
[2023-10-02] MEDS ORDERED: HYDROCODONE/APAP 5/325 MG TAB ONE (21:17)
[2023-10-02] MEDS ORDERED: CYCLOBENZAPRINE 10 MG TAB ONE (21:18)
--- NOTE | 2023-10-02 21:19 | ER ---
Nurse's Notes [facility] Name: Jed Hernandez Age: 63 yrs Sex: Male : 1960 Arrival Date: 10/02/2023 Time: 17:59 Bed IW1 Private MD: Diagnosis: Low back pain Presentation: 10/01 18:18 Chief complaint: Patient states: has had 16 back surgeries, low back pain now. ko1 Coronavirus screen: At this time, the client does not indicate any symptoms associated with coronavirus-19. Ebola Screen: No symptoms or risks identified at this time. Initial Sepsis Screen: Does the patient meet any 2 criteria? No. Patient's initial sepsis screen is negative. Does the patient have a suspected source of infection? No. Patient's initial sepsis screen is negative. Risk Assessment: Do you want to hurt yourself or someone else? Patient reports no desire to harm self or others. Onset of symptoms is unknown. 18:18 Method Of Arrival: Ambulatory ko1 18:18 Acuity: GLORIA 4 ko1 Triage Assessment: 18:19 General: Appears in no apparent distress. Behavior is cooperative, appropriate for age. ko1 Pain: Complains of pain in left low back. Musculoskeletal: Circulation, motion, and sensation intact. Historical: - Allergies: 18:19 No Known Allergies; ko1 - PMHx: 18:19 Arthritis; chronic back pain; DDD; EDEMA; Hypercholesterolemia; Hypertensive disorder; ko1 - PSHx: 18:19 back surgery; brain surgery with FIRER ELECTRIC LOCOMOTIVE shunt; inguinal hernia; left shoulder; ko1 - Immunization history:: Adult Immunizations unknown. - Infectious Disease History:: Denies. - Social history:: Smoking status: Patient denies any tobacco usage or history of. Screenin:30 [facility] ED Fall Risk Assessment (Adult) History of falling in the last 3 months, ko1 including since admission No falls in past 3 months (0 pts) Confusion or Disorientation No (0 pts) Intoxicated or Sedated No (0 pts) Impaired Gait No (0 pts) Mobility Assist Device Used No (0 pt) Altered Elimination No (0 pt) Score/Fall Risk Level 0 - 2 = Low Risk Oriented to surroundings, Maintained a safe environment, Educated pt \T\ family on fall prevention, incl call for assistance when getting out of bed, Assessed \T\ reinforced patient's understanding of fall precautions, Provided non-skid footwear, Hourly rounding (assess needs \T\ fall precautionary measures) done, Used ambulatory aids as needed (educated on \T\ assisted with). Abuse screen: Denies threats or abuse. Denies injuries from another. Nutritional screening: No deficits noted. Tuberculosis screening: No symptoms or risk factors identified. Assessment: 18:30 Neuro: No deficits noted. ko1 21:24 Neuro: Level of Consciousness is awake, alert, obeys commands. ko1 Vital Signs: 18:19 BP 164 / 98; Pulse 95; Resp 16; Temp 97; Pulse Ox 99% ; ko1 18:30 BP 154 / 86; Pulse 90; Resp 16; Pulse Ox 100% ; ko1 ED Course: 18:12 Patient arrived in ED. mg5 18:19 Triage completed. ko1 18:19 Arm band placed on right wrist. Patient placed in waiting room, Patient notified of ko1 wait time. 18:24 Jessica Delong FNP-C is PHCP. kb 18:24 Marc Garza DO is Attending Physician. kb 18:30 Patient has correct armband on for positive identification. Provided Education on: [email or web address] 18:30 No provider procedures requiring assistance completed. Patient did not have IV access ko1 during this emergency room visit. 20:02 Lumbar Spine (3 Views) XRAY In Process Unspecified. EDMS 20:02 Hip Left 2 View XRAY In Process Unspecified. EDMS Administered Medications: 21:17 Drug: Cyclobenzaprine PO 10 mg PO once Route: PO; ko1 21:35 Follow up: Response: No adverse reaction ko1 21:17 Drug: HYDROcodone-acetaminophen PO 5 mg-325 mg 1 tabs PO once Route: PO; ko1 21:35 Follow up: Response: No adverse reaction ko1 Medication: 18:30 VIS not applicable for this client. ko1 Outcome: 21:19 Discharge ordered by . roderick 21:24 Discharged to home ambulatory, ko1 21:24 Condition: stable 21:24 Discharge instructions given to patient, Instructed on discharge instructions, follow up and referral plans. medication usage, Demonstrated understanding of instructions, follow-up care, medications, Prescriptions given X 2, 21:25 Patient left the ED. ko1 Signatures: Dispatcher [employer] EDMS Jessica Delong FNP-C SOFTWARE ENGINEER MOBILE-Ckb Amaya Mcduffie, RN RN ko1 Lashaun Tang mg5
--- NOTE | 2023-10-02 21:19 | EDPHYS ---
Physician Documentation [facility] Name: Jed Hernandez Age: 63 yrs Sex: Male : 1960 Arrival Date: 10/02/2023 Time: 17:59 Bed IW1 Private MD: ED Physician Marc Garza HPI: 10/01 23:28 This 63 yrs old Male presents to ER via Ambulatory with complaints of Back Pain. kb 23:28 Patient is a 63-year-old male with a history of chronic back pain who presents for kb increased pain to left lower back that radiates down buttock and left leg that started a week ago. Denies numbness or tingling. Pain aggravated by walking or laying on left side. Denies incontinence, urinary symptoms or fever. 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 - Infectious Disease History:: Denies. - Social history:: Smoking status: Patient denies any tobacco usage or history of. ROS: 23:27 Constitutional: As per HPI kb Exam: 23:27 Constitutional: This is a well developed, well nourished patient who is awake, alert, kb and in no acute distress. Head/Face: Normocephalic, atraumatic. ENT: Moist Mucous membranes Cardiovascular: Regular rate Respiratory: Respirations even and unlabored. No increased work of breathing. Talking in full sentences Skin: Warm, dry with normal turgor. Normal color. MS/ Extremity: Pulses equal, no cyanosis. Neurovascular intact. Full, normal range of motion. Neuro: Awake and alert, GCS 15, oriented to person, place, time, and situation. Moves all extremities. Normal gait. 23:27 Back: pain, that is moderate, of the left low back, Vital Signs: 18:19 BP 164 / 98; Pulse 95; Resp 16; Temp 97; Pulse Ox 99% ; ko1 18:30 BP 154 / 86; Pulse 90; Resp 16; Pulse Ox 100% ; ko1 MDM: 18:24 Patient medically screened. kb 23:27 Differential diagnosis: vertebral fracture, Sciatica, strain. Data reviewed: vital kb signs, nurses notes. Counseling: I had a detailed discussion with the patient and/or guardian regarding the historical points, exam findings, and any diagnostic results supporting the discharge/admit diagnosis, radiology results, the need for outpatient follow up, a family practitioner, to return to the emergency department if symptoms worsen or persist or if there are any questions or concerns that arise at home. ED course: Educated patient that I do not believe x-rays are indicated for this visit. Patient has no vertebral tenderness. Patient adamant that we get x-rays of his lumbar spine and left hip due to pain and significant history.. 10/01 18:29 Order name: Lumbar Spine (3 Views) XRAY; Complete Time: 20:42 kb 10/01 18:29 Order name: Hip Left 2 View XRAY; Complete Time: 20:42 kb Administered Medications: 21:17 Drug: Cyclobenzaprine PO 10 mg PO once Route: PO; ko1 21:35 Follow up: Response: No adverse reaction ko1 21:17 Drug: HYDROcodone-acetaminophen PO 5 mg-325 mg 1 tabs PO once Route: PO; ko1 21:35 Follow up: Response: No adverse reaction ko1 Disposition Summary: 10/02/23 21:19 Discharge Ordered Notes: Location: Home kb Condition: Stable kb Diagnosis - Low back pain kb Followup: kb - With: Emergency Department - When: As needed - Reason: Worsening of condition Followup: kb - With: Private Physician - When: 2 - 3 days - Reason: Recheck today's complaints, Continuance of care, Re-evaluation by your physician Discharge Instructions: - Discharge Summary Sheet kb - Musculoskeletal Pain kb Forms: - Medication Reconciliation Form kb - Antibiotic Education kb - Prescription Opioid Use kb - Patient Portal Instructions kb - Leadership Thank You Letter kb Prescriptions: - Ibuprofen 600 mg Oral Tablet - take 1 tablet ORAL route every 6 hours As needed take with food; 30 tablet; kb Refills: 0, Product Selection Permitted - Cyclobenzaprine 10 mg Oral tablet - take 1 tablet ORAL route every 8 hours As needed; 21 tablet; Refills: 0, kb Product Selection Permitted Addendum: 10/06/2023 16:20 I was immediately available on-site in the Emergency Department for consultation in the m s3 care of the patient. Signatures: Dispatcher [employer] EDMS Jessica Delong, DATA MODELER-C DATA MODELER-Ckb Marc Garza, DO ms3 Amaya Mcduffie, RN RN ko1 Corrections: (The following items were deleted from the chart) 10/01 18:30 18:30 Hip Left 2 View+[email or web address] ordered. EDMS EDMS 23:29 23:28 Patient is a 63-year-old male with a history of chronic back pain who presents kb for increased pain to left lower back that radiates down buttock and left leg that started a week ago. Denies numbness or tingling. Pain aggravated by walking or laying on left side. Denies incontinence.. kb
[2023-10-02 21:46] VITALS: BP 154/86; TEMP 97; O2SAT 100
== END 2023-10-02 21:25 | disposition home or self-care (01) ==
LOC: ER 17:59
DX: M54.50 Low back pain, unspecified (principal); Z98.2 Presence of cerebrospinal fluid drainage device
CPT/HCPCS: 72100; 99283